=== PATIENT | male | born 1965 | race African-American/Black ===

== ENCOUNTER 2016-04-20 11:42 | Inpatient (IN) | payer OTHER ==
[2016-04-20 12:46] VITALS: BMI 24.8
--- NOTE | 2016-04-20 15:26 | HP ---
CIWA Score - CIWA Score Nausea/Vomitin Muscle Tremors: 2 Anxiety: 3 Paroxysmal Sweats: 3 Orientation: 0-Oriented Tacttile Disturbances: 2-Mild Itch/Numbness/Burn Auditory Disturbances: 0-None Visual Disturbances: 0-None Headache: 0-None Present Admission ROS BHS - HPI Chief Complaint: I need help to stop using alcohol. Allergies/Adverse Reactions: Allergies Allergy/AdvReac Type Severity Reaction Status Date / Time pork derived (porcine) Allergy Severe Rash Verified 04/20/16 13:36 History of Present Illness: 50 y/o m pt on mmtp with h/o chronic alcoholism seeking detox . Exam Limitations: No Limitations - Ebola screening Have you traveled outside of the country in the last 21 days: No Have you had contact with anyone from an Ebola affected area: No Have you been sick,other than usual withdrawal symptoms: No - Review of Systems Constitutional: Loss of Appetite, Malaise, Changes in sleep, Unexplained wgt Loss (20 lbs x 2 months) EENT: reports: Dental Problems Respiratory: reports: Shortness of Breath (h/o asthma) Cardiac: reports: No Symptoms Reported GI: reports: Nausea, Poor Appetite, Abdominal cramping : reports: No Symptoms Reported Musculoskeletal: reports: Muscle Pain Neuro: reports: No Symptoms reported Endocrine: reports: No Symptoms Reported Hematology: reports: No Symptoms Reported Psychiatric: reports: Depressed Other Systems: Reviewed and Negative Patient History - Patient Medical History Hx Anemia: No Hx Asthma: No Hx Chronic Obstructive Pulmonary Disease (COPD): No Hx Cancer: No Hx Cardiac Disorders: No Hx Congestive Heart Failure: No Hx Hypertension: Yes Hx Hypercholesterolemia: No Hx Pacemaker: No HX Cerebrovascular Accident: No Hx Seizures: No Hx Dementia: No Hx Diabetes: No Hx Gastrointestinal Disorders: No Hx Liver Disease: No Hx Genitourinary Disorders: No Hx Sexually Transmitted Disorders: No Hx Renal Disease (ESRD): No Hx Thyroid Disease: No Hx Human Immunodeficiency Virus (HIV): No Hx Hepatitis C: No Hx Depression: Yes (DOES NOT WANT PSYCH CONSULT) Hx Suicide Attempt: No (DENIES) Hx Bipolar Disorder: No Hx Schizophrenia: No - Patient Surgical History Past Surgical History: No Hx Neurologic Surgery: No Hx Cataract Extraction: No Hx Cardiac Surgery: No Hx Lung Surgery: No Hx Breast Surgery: No Hx Breast Biopsy: No Hx Abdominal Surgery: No Hx Appendectomy: No Hx Cholecystectomy: No Hx Genitourinary Surgery: No Hx Section: No Hx Orthopedic Surgery: No Anesthesia Reaction: No - PPD History Previous Implant?: Yes Documented Results: Positive w/o proof Date: 06/05/15 Results: CX-RAY NEGATIVE PPD to be Administered?: No - Reproductive History Patient is a Female of Child Bearing Age (11 -55 yrs old): No - Smoking Cessation Smoking history: Current every day smoker Have you smoked in the past 12 months: Yes Aproximately how many cigarettes per day: 10 Cigars Per Day: 0 Hx Chewing Tobacco Use: No Initiated information on smoking cessation: Yes 'Breaking Loose' booklet given: 04/20/16 - Substance & Tx. History Hx Alcohol Use: Yes Hx Substance Use: Yes Substance Use Type: Alcohol, Cocaine Hx Substance Use Treatment: Yes - Substances Abused Alcohol Route: Oral Frequency: No use in 30 days Amount used: 1/2 pt - 1 pt /d Age of first use: 12 Date of Last Use: 04/20/16 Cocaine Frequency: 3-6 times per week Amount used: 1-2 gms /wk Age of first use: 20 Date of Last Use: 04/20/16 Family Disease History - Family Disease History Family Disease History: Other: Father (DEPENDENT ON ETOH AND DRUGS), Brother ( DEPENDENT ON ETOH AND DRUGS) Admission Physical Exam BHS - Vital Signs Vital Signs: Vital Signs - 24 hr 04/20/16 12:44 Temperature 96.4 F L Pulse Rate 69 Respiratory 20 Rate Blood Pressure 140/103 50y/o m pt aox3 , ambulating in nad cooperative with exam. - Physical General Appearance: Yes: Appropriately Dressed, Irritable, Sweating, Anxious HEENTM: Yes: EOMI, Hearing grossly Normal, Normocephalic, Normal Voice, MAHENDRA Respiratory: Yes: Within Normal Limits, Lungs Clear, Normal Breath Sounds Neck: Yes: Supple, Trachea in good position Breast: Yes: Within Normal Limits Cardiology: Yes: Regular Rhythm, Regular Rate, S1, S2 Abdominal: Yes: Non Tender, Flat, Soft, Increased Bowel Sounds Back: Yes: Decreased Range of Motion Musculoskeletal: Yes: Back pain, Muscle Pain Extremities: Yes: Tremors Neurological: Yes: medical customer service representative II-XII NML intact, Fully Oriented, Alert, Motor Strength 5/5, Normal Response Integumentary: Yes: Dry, Moist Lymphatic: Yes: Within Normal Limits - Diagnostic (1) Alcohol dependence with uncomplicated withdrawal Current Visit: No Status: Acute (2) Cocaine dependence, uncomplicated Current Visit: No Status: Acute (3) Nicotine dependence Current Visit: Yes Status: Chronic Qualifiers: Nicotine product type: cigarettes Substance use status: uncomplicated Qualified Code(s): F17.210 - Nicotine dependence, cigarettes, uncomplicated (4) Asthma Current Visit: Yes Status: Chronic Qualifiers: Asthma severity: mild persistent (5) HTN (hypertension) Current Visit: Yes Status: Acute Qualifiers: Hypertension type: essential hypertension Qualified Code(s): I10 - Essential (primary) hypertension Cleared for Admission S - Detox or Rehab S Level of Care: Medically Managed Detox Regimen/Protocol: Librium S Breath Alcohol Content Breath Alcohol Content: 0.014 Urine Drug Screen - Results Drug Screen Negative: No Urine Drug Screen Results: RAMON-Cocaine, OPI-Opiates, MTD-Methadone
[2016-04-20] MEDS ORDERED: P-EPHED 60MG/TRIPROLIDI 2.5MG TABLET PO PRN (15:37)
[2016-04-20] MEDS ORDERED: MAG HYDROX/AL HYDROX/SIMETH 30 ML UNIT-DOSE CUP PO PRN (15:37)
[2016-04-20] MEDS ORDERED: diphenhydrAMINE HCL 50 MG CAPSULE PO PRN (15:37)
[2016-04-20] MEDS ORDERED: MENTHOL/PHENOL 1 EACH UD MM PRN (15:37)
[2016-04-20] MEDS ORDERED: ACETAMINOPHEN 325 MG TABLET (FP) PO PRN (15:37)
[2016-04-20] MEDS ORDERED: MAGNESIUM HYDROX 2400MG/30ML ORAL SUSPENSION 30 ML CUP PO PRN (15:37)
[2016-04-20] MEDS ORDERED: hydrOXYzine PAMOATE 25 MG CAPSULE (FP) PO PRN (15:37)
[2016-04-20] MEDS ORDERED: IBUPROFEN 400 MG TABLET (FP) PO PRN (15:37)
[2016-04-20] MEDS ORDERED: guaiFENesin/D-METHORPHAN HB 10 ML UNIT-DOSE CUPS PO PRN (15:37)
[2016-04-20] MEDS ORDERED: MAGNESIUM CITRATE 300 ML BOTTLE PO PRN (15:37)
[2016-04-20] MEDS ORDERED: chlordiazePOXIDE HCL 25 MG CAPSULE PO PRN (15:37)
[2016-04-20] MEDS ORDERED: LOPERAMIDE HCL 2 MG CAPSULE PO PRN (15:37)
[2016-04-20] MEDS ORDERED: ALBUTEROL SO4 6.7 GM HFA INHALER IH PRN (15:38)
[2016-04-20] MEDS: chlordiazePOXIDE HCL 25 MG CAPSULE PO SCH ×2 (18:16→22:39)
[2016-04-20] MEDS: THIAMINE HCL 100 MG TABLET (FP) PO SCH (22:39)
--- NOTE | 2016-04-20 22:50 | PN ---
S Progress Note Note: RECEIVED NURSE CALL PATIENT IS ALLERGIC TO BENADRYL AND VISTARIL DISCONTINUE ALLERGENS CONTINUE DETOX
[2016-04-20 23:18] LABS: URINE APPEARANCE CLEAR; URINE BILIRUBIN NEGATIVE (NEGATIVE); URINE BLOOD NEGATIVE (NEGATIVE); URINE COLOR YELLOW; URINE GLUCOSE (UA) NEGATIVE (NEGATIVE); URINE KETONE NEGATIVE (NEGATIVE); URINE LEUK ESTERASE NEGATIVE (NEGATIVE); URINE NITRITE NEGATIVE (NEGATIVE); URINE PROTEIN NEGATIVE (NEGATIVE); URINE UROBILINOGEN NEGATIVE E.U./dl (0.2-1.0)
[2016-04-21] MEDS: chlordiazePOXIDE HCL 25 MG CAPSULE PO SCH ×4 (05:37→22:03)
[2016-04-21] MEDS: METHADONE HCL 40 MG DISPERSABLE TABLET PO SCH (07:49)
[2016-04-21] MEDS: NICOTINE 21 MG/24 HOURS TOPICAL PATCH TD SCH (10:09)
[2016-04-21] MEDS: PRENATAL VITAMINS W/ FOLIC ACID TABLET (FP) PO SCH (10:09)
[2016-04-21] MEDS: NICOTINE POLACRILEX 4 MG GUM BC PRN (10:10)
[2016-04-21 10:14] LABS: MCH 31.9 pg (25.7-33.7); MCHC 33.9 g/dl (32.0-35.9); MEAN PLT VOLUME 9.1 fl (7.5-11.1); PLATELET COUNT 182 K/MM3 (134-434); RDW 13.5 % (11.9-15.9); WHITE BLOOD COUNT 4.7 K/mm3 (4.0-10.0)
--- NOTE | 2016-04-21 11:05 | PN ---
S CIWA - CIWA Score Nausea/Vomitin Muscle Tremors: 4-Moderate,w/Arms Extend Anxiety: 4-Mod. Anxious/Guarded Agitation: 4-Moderately Restless Paroxysmal Sweats: 3 Orientation: 0-Oriented Tacttile Disturbances: 1-Very Mild Itch/Numbness Auditory Disturbances: 0-None Visual Disturbances: 0-None Headache: 1-Very Mild CIWA-Ar Total Score: 20 BHS Progress Note (SOAP) Subjective: nausea, sweats, interrupted sleep, anxiety, tremor Objective: 04/21/16 11:04 Vital Signs - 8 hr 04/21/16 04/21/16 04/21/16 03:38 06:28 09:31 Temperature 96.3 F L 96.4 F L Pulse Rate 64 59 L Respiratory 18 15 18 Rate Blood Pressure 117/87 122/83 Laboratory Tests 04/20/16 04/21/16 04/21/16 23:00 05:50 05:50 WBC 4.7 RBC 4.59 Hgb 14.6 Hct 43.2 MCV 94.0 MCHC 33.9 RDW 13.5 Plt Count 182 MPV 9.1 Sodium 141 Potassium 4.0 Chloride 105 Urine Color Yellow Urine Appearance Clear Urine pH 6.0 Ur Specific [place] 1.020 Urine Protein Negative Urine Glucose (UA) Negative Urine Ketones Negative Urine Blood Negative Urine Nitrite Negative Urine Bilirubin Negative Urine Urobilinogen Negative Ur Leukocyte Esterase Negative labs still pending Assessment: 04/21/16 11:05 withdrawal sx Plan: cont detox, fluids, ambulation
[2016-04-21 11:11] LABS: ALBUMIN 3.9 g/dl (3.4-5.0); ALK PHOS 51 U/L (45-117); ANION GAP 7 (8-16); BILIRUBIN,TOTAL 0.5 mg/dL (0.2-1.0); CALCIUM 8.9 mg/dL (8.5-10.1); CO2 29 mmol/L (21-32); GLUCOSE,RANDOM 74 mg/dL (74-106); SGOT/AST 10 U/L (15-37); SGPT/ALT 21 U/L (12-78); TOT PROT 7.2 g/dl (6.4-8.2)
--- NOTE | 2016-04-21 12:53 | EKG ---
Test Reason : Blood Pressure : / mmHG Vent. Rate : 054 BPM Atrial Rate : 054 BPM P-R Int : 166 ms QRS Dur : 090 ms QT Int : 458 ms P-R-T Axes : 049 015 012 degrees QTc Int : 434 ms SINUS BRADYCARDIA OTHERWISE NORMAL ECG NO PREVIOUS ECGS AVAILABLE Confirmed by BILLY HERRON MD ([id number]) on 04/21/2016 12:53:24 PM Referred By: Confirmed By:BILLY HERRON MD
[2016-04-21] MEDS ORDERED: COLLOIDAL OATMEAL 1 BAR EACH TP PRN (17:46)
--- NOTE | 2016-04-21 17:48 | PN ---
S Progress Note Note: requests special soap
[2016-04-21] MEDS: THIAMINE HCL 100 MG TABLET (FP) PO SCH (22:03)
[2016-04-22] MEDS: METHADONE HCL 40 MG DISPERSABLE TABLET PO SCH (05:53)
[2016-04-22] MEDS: chlordiazePOXIDE HCL 25 MG CAPSULE PO SCH ×2 (05:53→10:08)
--- NOTE | 2016-04-22 08:59 | PN ---
S CIWA - CIWA Score Nausea/Vomitin Muscle Tremors: 4-Moderate,w/Arms Extend Anxiety: 4-Mod. Anxious/Guarded Agitation: 4-Moderately Restless Paroxysmal Sweats: 3 Orientation: 0-Oriented Tacttile Disturbances: 0-None Auditory Disturbances: 0-None Visual Disturbances: 0-None Headache: 0-None Present CIWA-Ar Total Score: 18 BHS Progress Note (SOAP) Subjective: nausea, sweats, interrupted sleep, anxiety, tremors, dry skin requesting A and D ointment Objective: 04/22/16 08:57 Vital Signs - 8 hr 04/22/16 04/22/16 03:30 06:34 Temperature 97.9 F Pulse Rate 52 L Respiratory 18 18 Rate Blood Pressure 143/92 Laboratory Tests 04/20/16 04/21/16 04/21/16 23:00 05:50 05:50 WBC 4.7 RBC 4.59 Hgb 14.6 Hct 43.2 MCV 94.0 MCHC 33.9 RDW 13.5 Plt Count 182 MPV 9.1 Sodium 141 Potassium 4.0 Chloride 105 Carbon Dioxide 29 Anion Gap 7 L BUN 12 D Creatinine 1.0 Creat Clearance w eGFR > 60 Random Glucose 74 Calcium 8.9 Total Bilirubin 0.5 D AST 10 L D ALT 21 D Alkaline Phosphatase 51 D Total Protein 7.2 Albumin 3.9 Urine Color Yellow Urine Appearance Clear Urine pH 6.0 Ur Specific [place] 1.020 Urine Protein Negative Urine Glucose (UA) Negative Urine Ketones Negative Urine Blood Negative Urine Nitrite Negative Urine Bilirubin Negative Urine Urobilinogen Negative Ur Leukocyte Esterase Negative RPR Titer 04/21/16 05:50 WBC RBC Hgb Hct MCV MCHC RDW Plt Count MPV Sodium Potassium Chloride Carbon Dioxide Anion Gap BUN Creatinine Creat Clearance w eGFR Random Glucose Calcium Total Bilirubin AST ALT Alkaline Phosphatase Total Protein Albumin Urine Color Urine Appearance Urine pH Ur Specific [place] Urine Protein Urine Glucose (UA) Urine Ketones Urine Blood Urine Nitrite Urine Bilirubin Urine Urobilinogen Ur Leukocyte Esterase RPR Titer Nonreactive Assessment: 04/22/16 08:58 withdrawal sx, dry skin Plan: cont detox, a and d ointment prescribed
[2016-04-22] MEDS: NICOTINE POLACRILEX 4 MG GUM BC PRN ×2 (09:43→16:54)
[2016-04-22] MEDS: PRENATAL VITAMINS W/ FOLIC ACID TABLET (FP) PO SCH (10:08)
[2016-04-22] MEDS: NICOTINE 21 MG/24 HOURS TOPICAL PATCH TD SCH (10:09)
[2016-04-22] MEDS: PETROLATUM, WHITE 30 GM TUBE TP SCH (10:09)
[2016-04-22] MEDS: VITAMINS A AND D TOPICAL OINTMENT 60 GM TUBE TP SCH ×2 (11:28→17:17)
[2016-04-22] MEDS: chlordiazePOXIDE 5 MG CAPSULE PO SCH ×2 (17:17→22:10)
[2016-04-22] MEDS: THIAMINE HCL 100 MG TABLET (FP) PO SCH (22:08)
--- NOTE | 2016-04-22 22:22 | PN ---
BHS Progress Note Note: received nurse call requests something for sleep recommend relaxation technique continue detox
[2016-04-22] MEDS ORDERED: ZOLPIDEM TARTRATE 5 MG TABLET PO STA (23:30)
--- NOTE | 2016-04-22 23:39 | PN ---
[facility] Progress Note Note: Psychiatry Attending-business unit controller's note : Asked to address this patient's complaint for insomnia. Progress notes reviewed.Medications revisited. Spoke to Mr Ortiz via telephone.Complaint confirmed. Patient cannot take benadryl (allergy) or trazodone (nightmares as per self- report). Seroquel offered.Rejected by patient.He agrees to take zolpidem 5 mg po NOW. Side effects/benefits discussed with the patient.Order is entered.Nurse made aware.
[2016-04-23] MEDS: VITAMINS A AND D TOPICAL OINTMENT 60 GM TUBE TP SCH ×3 (02:41→12:17)
[2016-04-23] MEDS: METHADONE HCL 40 MG DISPERSABLE TABLET PO SCH (05:42)
[2016-04-23] MEDS: chlordiazePOXIDE 5 MG CAPSULE PO SCH ×2 (05:42→10:17)
[2016-04-23] MEDS: PRENATAL VITAMINS W/ FOLIC ACID TABLET (FP) PO SCH (10:17)
[2016-04-23] MEDS: NICOTINE 21 MG/24 HOURS TOPICAL PATCH TD SCH (10:17)
[2016-04-23] MEDS: PETROLATUM, WHITE 30 GM TUBE TP SCH (10:17)
--- NOTE | 2016-04-23 11:29 | PN ---
BHS Progress Note (SOAP) Subjective: nausea, sweats, interrupted sleep, anxiety, tremor Objective: 04/23/16 11:28 Vital Signs - 8 hr 04/23/16 04/23/16 04/23/16 03:43 06:30 09:53 Temperature 96.6 F L 96.7 F L Pulse Rate 62 76 Respiratory 18 18 20 Rate Blood Pressure 134/96 142/100 Laboratory Tests 04/20/16 04/21/16 04/21/16 23:00 05:50 05:50 WBC 4.7 RBC 4.59 Hgb 14.6 Hct 43.2 MCV 94.0 MCHC 33.9 RDW 13.5 Plt Count 182 MPV 9.1 Sodium 141 Potassium 4.0 Chloride 105 Carbon Dioxide 29 Anion Gap 7 L BUN 12 D Creatinine 1.0 Creat Clearance w eGFR > 60 Random Glucose 74 Calcium 8.9 Total Bilirubin 0.5 D AST 10 L D ALT 21 D Alkaline Phosphatase 51 D Total Protein 7.2 Albumin 3.9 Urine Color Yellow Urine Appearance Clear Urine pH 6.0 Ur Specific [place] 1.020 Urine Protein Negative Urine Glucose (UA) Negative Urine Ketones Negative Urine Blood Negative Urine Nitrite Negative Urine Bilirubin Negative Urine Urobilinogen Negative Ur Leukocyte Esterase Negative RPR Titer 04/21/16 05:50 WBC RBC Hgb Hct MCV MCHC RDW Plt Count MPV Sodium Potassium Chloride Carbon Dioxide Anion Gap BUN Creatinine Creat Clearance w eGFR Random Glucose Calcium Total Bilirubin AST ALT Alkaline Phosphatase Total Protein Albumin Urine Color Urine Appearance Urine pH Ur Specific [place] Urine Protein Urine Glucose (UA) Urine Ketones Urine Blood Urine Nitrite Urine Bilirubin Urine Urobilinogen Ur Leukocyte Esterase RPR Titer Nonreactive Assessment: 04/23/16 11:28 withdrawal sx Plan: cont detox
[2016-04-23] MEDS ORDERED: amLODIPine BESYLATE 5 MG TABLET (FP) PO SCH (11:30)
[2016-04-23 13:28] VITALS: BP 126/86; PULSE 72; TEMP 96.4
[2016-04-23] MEDS: NICOTINE POLACRILEX 4 MG GUM BC PRN (14:03)
--- NOTE | 2016-04-23 14:37 | PN ---
S Progress Note Note: Patient wishes to leve a day before completing discharge, denies h/o seizures, DTs in past, BP now controlled with restarting antihypertensive medications. no complaints at this time will give regualr discharge.
--- NOTE | 2016-04-23 14:40 | DS ---
[facility] Detox Discharge Summary Admission Date: 04/20/16 Discharge Date: 04/23/16 - History Present History: Alcohol Dependence Pertinent Past History: asthma, nicotien dependence, HTN - Physical Exam Results Vital Signs: Vital Signs Temperature 96.4 F L 04/23/16 13:27 Pulse Rate 72 04/23/16 13:27 Respiratory Rate 20 04/23/16 13:27 Blood Pressure 126/86 04/23/16 13:27 O2 Sat by Pulse Oximetry (%) Pertinent Admission Physical Exam Findings: withdrawal sx - Treatment Hospital Course: Detox Protocol Followed, Detoxed Safely, Responded well, Discharged Condition Good, Rehab Referral Accepted Patient has Accepted a Rehab Referral to: Yes - Medication Discharge Medications: Ambulatory Orders Albuterol Sulfate Inhaler - [Ventolin HFA Inhaler -] 2 puff IH Q4H PRN #0 inhaler 11/01/15 Fluticasone Prop 0.05% Nasal [Flonase -] 1 spray NS BID spray 11/01/15 Sodium Chloride Nasal [place] [[place] Nasal [place] -] 2 spray NS BID PRN #0 bottle 11/01/15 Amlodipine Besylate [Norvasc -] 5 mg PO DAILY 04/20/16 - Diagnosis (1) HTN (hypertension) Current Visit: Yes Status: Chronic Qualifiers: Hypertension type: essential hypertension Qualified Code(s): I10 - Essential (primary) hypertension (2) Asthma Current Visit: Yes Status: Chronic Qualifiers: Asthma severity: mild persistent (3) Nicotine dependence Current Visit: Yes Status: Chronic Qualifiers: Nicotine product type: cigarettes Substance use status: in withdrawal Qualified Code(s): F17.213 - Nicotine dependence, cigarettes, with withdrawal (4) Alcohol dependence with uncomplicated withdrawal Current Visit: Yes Status: Chronic (5) Cocaine dependence, uncomplicated Current Visit: Yes Status: Chronic (6) Drug-induced mood disorder Current Visit: Yes Status: Acute - AMA Did Patient Leave Against Medical Advice: No
--- NOTE | 2016-04-23 14:49 | CONSULT ---
[facility] Psychiatric Consult - Data Date of interview: 04/23/16 Admission source: [facility] Identifying data: This is 50 years old male with no psychiatric hospitalization history intoxicated with : Opioids, Cocaine, Alcohol and Nicotine Substance Abuse History: Smoking Cessation. Smoking history: Current every day smoker. Have you smoked in the past 12 months: Yes. Aproximately how many cigarettes per day: 10. Cigars Per Day: 0. Hx Chewing Tobacco Use: No. Initiated information on smoking cessation: Yes. 'Breaking Loose' booklet given : 04/20/16. - Substance & Tx. History. Hx Alcohol Use: Yes. Hx Substance Use : Yes. Substance Use Type: Alcohol, Cocaine. Hx Substance Use Treatment: Yes. - Substances Abused. Alcohol. Route: Oral. Frequency: No use in 30 days. Amount used: 1/2 pt - 1 pt /d. Age of first use: 12. Date of Last Use : 04/20/16. Cocaine. Frequency: 3-6 times per week. Amount used: 1-2 gms / wk. Age of first use: 20. Date of Last Use: 04/20/16 Medical History: HTN, Asthma Psychiatric History: Denies Physical/Sexual Abuse/Trauma History: Denies Additional Comment: Observation Mental Status Exam - Mental Status Exam Alert and Oriented to: Person Cognitive Function: Fair Patient Appearance: Unkempt Mood: Sad Affect: Flat Patient Behavior: Sedated Speech Pattern: Delayed Voice Loudness: Mildly Soft/Quiet Thought Process: Circumstantial Thought Disorder: Being Controlled Hallucinations: Denies Suicidal Ideation: Denies Homicidal Ideation: Denies Insight/Judgement: Fair Sleep: Difficulty falling asleep Appetite: Fair Muscle strength/Tone: Normal Gait/Station: Shuffling Additional Comments: Observation Psychiatric Findings - Problem List ([place] 1, 2,3) (1) Drug-induced mood disorder Current Visit: Yes Status: Acute (2) Alcohol dependence with uncomplicated withdrawal Current Visit: Yes Status: Chronic (3) Cocaine dependence, uncomplicated Current Visit: Yes Status: Chronic (4) Nicotine dependence Current Visit: Yes Status: Chronic Qualifiers: Nicotine product type: cigarettes Substance use status: in withdrawal Qualified Code(s): F17.213 - Nicotine dependence, cigarettes, with withdrawal - Initial Treatment Plan Initial Treatment Plan: Observation
[2016-04-23] MEDS ORDERED: chlordiazePOXIDE HCL 10 MG CAPSULE PO SCH (17:00)
== END 2016-04-23 15:18 | disposition home or self-care (01) | DRG 774 ==
LOC: YASAS 11:42 → Y3N 16:36
PROVIDERS: ADMIT Internal Medicine; ATTEND Internal Medicine
PROC: HZ2ZZZZ Detoxification Services for Substance Abuse Treatment (ICD-10-PCS; principal; 2016-04-20)
DX: F10.230 Alcohol dependence with withdrawal, uncomplicated (principal); F14.20 Cocaine dependence, uncomplicated; F17.210 Nicotine dependence, cigarettes, uncomplicated; F19.24 Other psychoactive substance dependence with psychoactive substance-induced mood disorder; I10 Essential (primary) hypertension; J45.909 Unspecified asthma, uncomplicated; L98.8 Other specified disorders of the skin and subcutaneous tissue
CPT/HCPCS: 36415; 80053; 81003; 85027; 86593; 93005; 93010

== ENCOUNTER 2016-07-09 11:03 | Inpatient (IN) | payer OTHER ==
[2016-07-09 14:17] VITALS: BMI 25.4
--- NOTE | 2016-07-09 14:49 | HP ---
CIWA Score - CIWA Score Nausea/Vomitin Muscle Tremors: 3 Anxiety: 3 Agitation: 3 Paroxysmal Sweats: 2 Orientation: 0-Oriented Tacttile Disturbances: 2-Mild Itch/Numbness/Burn Auditory Disturbances: 2-Mild Harshness/Frighten Visual Disturbances: 2-Mild Sensitivity Headache: 2-Mild CIWA-Ar Total Score: 22 Admission ROS BHS - HPI Chief Complaint: i need help to stop drinking alcohol Allergies/Adverse Reactions: Allergies Allergy/AdvReac Type Severity Reaction Status Date / Time pork derived (porcine) Allergy Severe Rash Verified 07/09/16 14:39 diphenhydramine HCl Allergy Intermediate Swelling Verified 07/09/16 14:39 [From Benadryl] No Known Drug Allergies Allergy Verified 07/09/16 14:39 History of Present Illness: this 50 years old male with alcohol dependence,withdrawal symptom,last detox [facility] 04/20/16 to 04/23/16 mmtp 40 mgs/day,last medicated today htn asthma longest period of sobriety 9 months Exam Limitations: No Limitations - Ebola screening Have you traveled outside of the country in the last 21 days: No Have you had contact with anyone from an Ebola affected area: No Have you been sick,other than usual withdrawal symptoms: No - Review of Systems Constitutional: Loss of Appetite, Malaise, Night Sweats, Changes in sleep, Weakness EENT: reports: Nose Congestion Respiratory: reports: No Symptoms reported Cardiac: reports: No Symptoms Reported GI: reports: Diarrhea, Nausea, Vomiting, Abdominal cramping : reports: No Symptoms Reported Musculoskeletal: reports: Back Pain, Muscle Pain Integumentary: reports: Dryness Neuro: reports: Headache, Tremors Endocrine: reports: No Symptoms Reported Hematology: reports: No Symptoms Reported Psychiatric: reports: No Sypmtoms Reported, Judgement Intact, Mood/Affect Appropiate, Orientated x3 Patient History - Patient Medical History Hx Anemia: No Hx Asthma: Yes (on albuterol inhaler) Hx Chronic Obstructive Pulmonary Disease (COPD): No Hx Cancer: No Hx Cardiac Disorders: No Hx Congestive Heart Failure: No Hx Hypertension: Yes (non compliance) Hx Hypercholesterolemia: No Hx Pacemaker: No HX Cerebrovascular Accident: No Hx Seizures: No Hx Dementia: No Hx Diabetes: No Hx Gastrointestinal Disorders: No Hx Liver Disease: No Hx Genitourinary Disorders: No Hx Sexually Transmitted Disorders: No Hx Renal Disease (ESRD): No Hx Thyroid Disease: No Hx Human Immunodeficiency Virus (HIV): No (last 07/03/16 negative) Hx Hepatitis C: No Hx Depression: Yes (DOES NOT WANT PSYCH CONSULT) Hx Suicide Attempt: No (DENIES) Hx Bipolar Disorder: No Hx Schizophrenia: No Other Medical History: no suicidal,no homicidal,low back pain - Patient Surgical History Past Surgical History: No Hx Neurologic Surgery: No Hx Cataract Extraction: No Hx Cardiac Surgery: No Hx Lung Surgery: No Hx Breast Surgery: No Hx Breast Biopsy: No Hx Abdominal Surgery: No Hx Appendectomy: No Hx Cholecystectomy: No Hx Genitourinary Surgery: No Hx Section: No Hx Orthopedic Surgery: No Anesthesia Reaction: No - PPD History Previous Implant?: Yes Documented Results: Positive w/o proof Date: 06/05/15 Results: CX-RAY NEGATIVE - Smoking Cessation Smoking history: Current every day smoker Have you smoked in the past 12 months: Yes Aproximately how many cigarettes per day: 10 Cigars Per Day: 0 Hx Chewing Tobacco Use: No Initiated information on smoking cessation: Yes 'Breaking Loose' booklet given: 07/09/16 - Substance & Tx. History Hx Alcohol Use: Yes Hx Substance Use: Yes Substance Use Type: Alcohol, Cocaine Hx Substance Use Treatment: Yes ([facility] 04/20/16 to 04/23/16) Family Disease History - Family Disease History Family Disease History: Other: Father (DEPENDENT ON ETOH AND DRUGS), Brother ( DEPENDENT ON ETOH AND DRUGS) Admission Physical Exam BHS - Vital Signs Vital Signs: Vital Signs - 24 hr 07/09/16 14:13 Temperature 97 F L Pulse Rate 74 Respiratory 20 Rate Blood Pressure 134/100 - Physical General Appearance: Yes: Moderate Distress, Tremorous, Irritable, Sweating, Anxious HEENTM: Yes: Hearing grossly Normal, Normal ENT Inspection, MAHENDRA, Pharynx Normal Respiratory: Yes: Lungs Clear, Normal Breath Sounds, No Respiratory Distress Neck: Yes: Within Normal Limits, Supple, Trachea in good position Breast: Yes: Within Normal Limits Cardiology: Yes: Within Normal Limits, Regular Rhythm, Regular Rate, S1, S2 Abdominal: Yes: Within Normal Limits, Normal Bowel Sounds, Non Tender, Flat, Soft Genitourinary: Yes: Within Normal Limits Back: Yes: Within Normal Limits, Normal Inspection, Muscle Spasm Musculoskeletal: Yes: full range of Motion, Back pain, Muscle Pain Extremities: Yes: Within Normal Limits, Normal Range of Motion, Tremors Neurological: Yes: president & founder II-XII NML intact, Fully Oriented, Alert, Motor Strength 5/5 Integumentary: Yes: Dry Lymphatic: Yes: Within Normal Limits - Diagnostic (1) Alcohol dependence with uncomplicated withdrawal Current Visit: No Status: Chronic (2) Asthma Current Visit: No Status: Chronic Qualifiers: Asthma severity: mild persistent (3) Cocaine dependence, uncomplicated Current Visit: No Status: Chronic (4) HTN (hypertension) Current Visit: No Status: Chronic Qualifiers: Hypertension type: essential hypertension Qualified Code(s): I10 - Essential (primary) hypertension (5) Nicotine dependence Current Visit: No Status: Chronic Qualifiers: Nicotine product type: cigarettes Substance use status: in withdrawal Qualified Code(s): F17.213 - Nicotine dependence, cigarettes, with withdrawal (6) Syncope Current Visit: Yes Status: Acute (7) Weight loss Current Visit: Yes Status: Acute (8) Positive PPD Current Visit: Yes Status: Acute Cleared for Admission [facility] - Detox or Rehab [facility] Level of Care: Medically Managed Detox Regimen/Protocol: Librium [facility] Breath Alcohol Content Breath Alcohol Content: 0 Urine Drug Screen - Results Drug Screen Negative: No Urine Drug Screen Results: RAMON-Cocaine, OPI-Opiates, MTD-Methadone
[2016-07-09] MEDS ORDERED: MENTHOL/PHENOL 1 EACH UD MM PRN (15:03)
[2016-07-09] MEDS ORDERED: ACETAMINOPHEN 325 MG TABLET (FP) PO PRN (15:03)
[2016-07-09] MEDS ORDERED: LOPERAMIDE HCL 2 MG CAPSULE PO PRN (15:03)
[2016-07-09] MEDS ORDERED: MAGNESIUM HYDROX 2400MG/30ML ORAL SUSPENSION 30 ML CUP PO PRN (15:03)
[2016-07-09] MEDS ORDERED: guaiFENesin/D-METHORPHAN HB 10 ML UNIT-DOSE CUPS PO PRN (15:03)
[2016-07-09] MEDS ORDERED: chlordiazePOXIDE HCL 25 MG CAPSULE PO PRN (15:03)
[2016-07-09] MEDS ORDERED: IBUPROFEN 400 MG TABLET (FP) PO PRN (15:03)
[2016-07-09] MEDS ORDERED: MAGNESIUM CITRATE 300 ML BOTTLE PO PRN (15:03)
[2016-07-09] MEDS ORDERED: diphenhydrAMINE HCL 50 MG CAPSULE PO PRN (15:03)
[2016-07-09] MEDS ORDERED: MAG HYDROX/AL HYDROX/SIMETH 30 ML UNIT-DOSE CUP PO PRN (15:03)
[2016-07-09] MEDS ORDERED: ALBUTEROL SO4 6.7 GM HFA INHALER IH PRN (15:09)
[2016-07-09] MEDS ORDERED: chlordiazePOXIDE HCL 25 MG CAPSULE PO ONE (15:15)
[2016-07-09] MEDS: amLODIPine BESYLATE 5 MG TABLET (FP) PO SCH (15:49)
[2016-07-09 17:38] LABS: URINE APPEARANCE CLEAR; URINE BILIRUBIN NEGATIVE (NEGATIVE); URINE BLOOD NEGATIVE (NEGATIVE); URINE COLOR YELLOW; URINE GLUCOSE (UA) NEGATIVE (NEGATIVE); URINE KETONE 2+ (NEGATIVE); URINE NITRITE NEGATIVE (NEGATIVE); URINE UROBILINOGEN NEGATIVE E.U./dl (0.2-1.0)
[2016-07-09] MEDS: chlordiazePOXIDE HCL 25 MG CAPSULE PO SCH ×2 (17:46→22:17)
[2016-07-09 17:56] LABS: URINE LEUK ESTERASE TRACE (NEGATIVE); URINE PROTEIN 1+ (NEGATIVE)
[2016-07-09 18:22] LABS: URINE BACTERIA RARE /hpf (NONE SEEN); URINE HYALINE CAST 21 /lpf; URINE MUCUS MANY; URINE RBC 1 /hpf (0-3); URINE WBC 5 /hpf (3-5)
[2016-07-09] MEDS: THIAMINE HCL 100 MG TABLET (FP) PO SCH (22:17)
[2016-07-10] MEDS: chlordiazePOXIDE HCL 25 MG CAPSULE PO SCH ×4 (05:54→22:20)
[2016-07-10 09:19] LABS: HIV 1 & 2 AB NEGATIVE; HIV 1 AGp24 NEGATIVE
[2016-07-10] MEDS ORDERED: METHADONE HCL 40 MG DISPERSABLE TABLET PO ONE (09:20)
--- NOTE | 2016-07-10 10:08 | EKG ---
Test Reason : Blood Pressure : / mmHG Vent. Rate : 061 BPM Atrial Rate : 061 BPM P-R Int : 158 ms QRS Dur : 086 ms QT Int : 450 ms P-R-T Axes : 049 007 -29 degrees QTc Int : 453 ms NORMAL SINUS RHYTHM NONSPECIFIC T WAVE ABNORMALITY ABNORMAL ECG WHEN COMPARED WITH ECG OF 20-APR-2016 17:48, INVERTED T WAVES HAVE REPLACED NONSPECIFIC T WAVE ABNORMALITY IN INFERIOR LEADS INVERTED T WAVES HAVE REPLACED NONSPECIFIC T WAVE ABNORMALITY IN ANTERIOR LEADS Confirmed by GERALDO FORTE MD ([id number]) on 07/10/2016 10:08:23 AM Referred By: Confirmed By:GERALDO FORTE MD
[2016-07-10 10:12] LABS: MCH 31.9 pg (25.7-33.7); MCHC 34.3 g/dl (32.0-35.9); MEAN PLT VOLUME 9.3 fl (7.5-11.1); PLATELET COUNT 183 K/MM3 (134-434); RDW 14.5 % (11.9-15.9)
[2016-07-10 10:13] LABS: ALBUMIN 4.3 g/dl (3.4-5.0)
[2016-07-10 10:14] LABS: BILIRUBIN,TOTAL 0.6 mg/dL (0.2-1.0); CALCIUM 9.4 mg/dL (8.5-10.1); COCKROFT - GAULT 72.88; CREATININE 1.4 mg/dL (0.7-1.3); TOT PROT 8.2 g/dl (6.4-8.2)
[2016-07-10] MEDS: PRENATAL VITAMINS W/ FOLIC ACID TABLET (FP) PO SCH (10:31)
[2016-07-10] MEDS: amLODIPine BESYLATE 5 MG TABLET (FP) PO SCH (10:31)
--- NOTE | 2016-07-10 10:46 | PN ---
[facility] CIWA - CIWA Score Nausea/Vomitin-No Nausea/No Vomiting Muscle Tremors: 4-Moderate,w/Arms Extend Anxiety: 4-Mod. Anxious/Guarded Agitation: 4-Moderately Restless Paroxysmal Sweats: 1-Minimal Palms Moist Orientation: 0-Oriented Tacttile Disturbances: 3-Moderate Itch/Numb/Burn Auditory Disturbances: 0-None Visual Disturbances: 0-None Headache: 0-None Present CIWA-Ar Total Score: 16 BHS Progress Note (SOAP) Subjective: ANXIETY,TREMORS,SWEATS,FATIGUE. Objective: 07/10/16 10:45 Vital Signs Temperature 97.6 F 07/10/16 09:57 Pulse Rate 79 07/10/16 09:57 Respiratory Rate 18 07/10/16 09:57 Blood Pressure 123/94 07/10/16 09:57 O2 Sat by Pulse Oximetry (%) Laboratory Last Values WBC 7.0 K/mm3 (4.0-10.0) D 07/10/16 06:00 RBC 4.82 M/mm3 (4.00-5.60) 07/10/16 06:00 Hgb 15.4 GM/dL (11.7-16.9) 07/10/16 06:00 Hct 44.8 % (35.4-49) 07/10/16 06:00 MCV 93.0 fl (80-96) 07/10/16 06:00 MCHC 34.3 g/dl (32.0-35.9) 07/10/16 06:00 RDW 14.5 % (11.9-15.9) 07/10/16 06:00 Plt Count 183 K/MM3 (134-434) 07/10/16 06:00 MPV 9.3 fl (7.5-11.1) 07/10/16 06:00 Sodium 137 mmol/L (136-145) 07/10/16 06:00 Potassium 4.4 mmol/L (3.5-5.1) 07/10/16 06:00 Chloride 99 mmol/L (98-107) 07/10/16 06:00 Carbon Dioxide 30 mmol/L (21-32) 07/10/16 06:00 Anion Gap 8 (8-16) 07/10/16 06:00 BUN 16 mg/dL (7-18) D 07/10/16 06:00 Creatinine 1.4 mg/dL (0.7-1.3) H D 07/10/16 06:00 Creat Clearance w eGFR 53.43 (>60) 07/10/16 06:00 Random Glucose 159 mg/dL (74-106) H D 07/10/16 06:00 Calcium 9.4 mg/dL (8.5-10.1) 07/10/16 06:00 Total Bilirubin 0.6 mg/dL (0.2-1.0) 07/10/16 06:00 AST 20 U/L (15-37) D 07/10/16 06:00 ALT 28 U/L (12-78) D 07/10/16 06:00 Alkaline Phosphatase 60 U/L (45-117) 07/10/16 06:00 Total Protein 8.2 g/dl (6.4-8.2) 07/10/16 06:00 Albumin 4.3 g/dl (3.4-5.0) 07/10/16 06:00 Urine Color Yellow 07/09/16 15:00 Urine Appearance Clear 07/09/16 15:00 Urine pH 5.0 (5.0-8.0) 07/09/16 15:00 Ur Specific [place] 1.029 (1.001-1.035) 07/09/16 15:00 Urine Protein 1+ (NEGATIVE) H 07/09/16 15:00 Urine Glucose (UA) Negative (NEGATIVE) 07/09/16 15:00 Urine Ketones 2+ (NEGATIVE) H 07/09/16 15:00 Urine Blood Negative (NEGATIVE) 07/09/16 15:00 Urine Nitrite Negative (NEGATIVE) 07/09/16 15:00 Urine Bilirubin Negative (NEGATIVE) 07/09/16 15:00 Urine Urobilinogen Negative E.U./dl (0.2-1.0) 07/09/16 15:00 Ur Leukocyte Esterase Trace (NEGATIVE) H 07/09/16 15:00 Urine RBC 1 /hpf (0-3) 07/09/16 15:00 Urine WBC 5 /hpf (3-5) 07/09/16 15:00 Ur Epithelial Cells Rare /hpf (FEW) 07/09/16 15:00 Urine Bacteria Rare /hpf (NONE SEEN) 07/09/16 15:00 Hyaline Casts 21 /lpf 07/09/16 15:00 Urine Mucus Many 07/09/16 15:00 HIV 1&2 Antibody Screen Negative 07/09/16 13:00 HIV P24 Antigen Negative 07/09/16 13:00 LABS NOTED Assessment: 07/10/16 10:45 WITHDRAWAL SX Plan: CONTINUE DETOX
[2016-07-10] MEDS: NICOTINE POLACRILEX 2 MG GUM BUC PRN ×3 (13:08→22:23)
[2016-07-10] MEDS ORDERED: COLLOIDAL OATMEAL 1 BAR EACH TP PRN (19:50)
[2016-07-10] MEDS: THIAMINE HCL 100 MG TABLET (FP) PO SCH (22:20)
[2016-07-10] MEDS: P-EPHED 60MG/TRIPROLIDI 2.5MG TABLET PO PRN (22:22)
[2016-07-11] MEDS: chlordiazePOXIDE HCL 25 MG CAPSULE PO SCH ×2 (05:38→10:30)
[2016-07-11] MEDS: METHADONE HCL 40 MG DISPERSABLE TABLET PO SCH (05:38)
[2016-07-11] MEDS: PRENATAL VITAMINS W/ FOLIC ACID TABLET (FP) PO SCH (10:30)
[2016-07-11] MEDS: amLODIPine BESYLATE 5 MG TABLET (FP) PO SCH (10:30)
[2016-07-11] MEDS: HYDROCORTISONE 0.5% TOPICAL OINTMENT TUBE TP SCH ×2 (12:34→22:56)
--- NOTE | 2016-07-11 15:15 | PN ---
[facility] CIWA - CIWA Score Nausea/Vomitin-No Nausea/No Vomiting Muscle Tremors: 4-Moderate,w/Arms Extend Anxiety: 4-Mod. Anxious/Guarded Agitation: 4-Moderately Restless Paroxysmal Sweats: 3 Orientation: 0-Oriented Tacttile Disturbances: 3-Moderate Itch/Numb/Burn Auditory Disturbances: 0-None Visual Disturbances: 0-None Headache: 0-None Present CIWA-Ar Total Score: 18 BHS Progress Note (SOAP) Subjective: Tremors, Sweating, Interrupted Sleep. Pt. reporting feeling of having a "mass" in Right Breast for several months. Pt. reports occasional discomfort at site. Objective: PT. A & O X 3, OBSERVED AMBULATING ON UNIT. 07/11/16 15:11 Vital Signs Temperature 96.5 F L 07/11/16 11:17 Pulse Rate 66 07/11/16 11:17 Respiratory Rate 19 07/11/16 11:17 Blood Pressure 113/82 07/11/16 11:17 O2 Sat by Pulse Oximetry (%) Laboratory Last Values WBC 7.0 K/mm3 (4.0-10.0) D 07/10/16 06:00 RBC 4.82 M/mm3 (4.00-5.60) 07/10/16 06:00 Hgb 15.4 GM/dL (11.7-16.9) 07/10/16 06:00 Hct 44.8 % (35.4-49) 07/10/16 06:00 MCV 93.0 fl (80-96) 07/10/16 06:00 MCHC 34.3 g/dl (32.0-35.9) 07/10/16 06:00 RDW 14.5 % (11.9-15.9) 07/10/16 06:00 Plt Count 183 K/MM3 (134-434) 07/10/16 06:00 MPV 9.3 fl (7.5-11.1) 07/10/16 06:00 Sodium 137 mmol/L (136-145) 07/10/16 06:00 Potassium 4.4 mmol/L (3.5-5.1) 07/10/16 06:00 Chloride 99 mmol/L (98-107) 07/10/16 06:00 Carbon Dioxide 30 mmol/L (21-32) 07/10/16 06:00 Anion Gap 8 (8-16) 07/10/16 06:00 BUN 16 mg/dL (7-18) D 07/10/16 06:00 Creatinine 1.4 mg/dL (0.7-1.3) H D 07/10/16 06:00 Creat Clearance w eGFR 53.43 (>60) 07/10/16 06:00 Random Glucose 159 mg/dL (74-106) H D 07/10/16 06:00 Calcium 9.4 mg/dL (8.5-10.1) 07/10/16 06:00 Total Bilirubin 0.6 mg/dL (0.2-1.0) 07/10/16 06:00 AST 20 U/L (15-37) D 07/10/16 06:00 ALT 28 U/L (12-78) D 07/10/16 06:00 Alkaline Phosphatase 60 U/L (45-117) 07/10/16 06:00 Total Protein 8.2 g/dl (6.4-8.2) 07/10/16 06:00 Albumin 4.3 g/dl (3.4-5.0) 07/10/16 06:00 Urine Color Yellow 07/09/16 15:00 Urine Appearance Clear 07/09/16 15:00 Urine pH 5.0 (5.0-8.0) 07/09/16 15:00 Ur Specific [place] 1.029 (1.001-1.035) 07/09/16 15:00 Urine Protein 1+ (NEGATIVE) H 07/09/16 15:00 Urine Glucose (UA) Negative (NEGATIVE) 07/09/16 15:00 Urine Ketones 2+ (NEGATIVE) H 07/09/16 15:00 Urine Blood Negative (NEGATIVE) 07/09/16 15:00 Urine Nitrite Negative (NEGATIVE) 07/09/16 15:00 Urine Bilirubin Negative (NEGATIVE) 07/09/16 15:00 Urine Urobilinogen Negative E.U./dl (0.2-1.0) 07/09/16 15:00 Ur Leukocyte Esterase Trace (NEGATIVE) H 07/09/16 15:00 Urine RBC 1 /hpf (0-3) 07/09/16 15:00 Urine WBC 5 /hpf (3-5) 07/09/16 15:00 Ur Epithelial Cells Rare /hpf (FEW) 07/09/16 15:00 Urine Bacteria Rare /hpf (NONE SEEN) 07/09/16 15:00 Hyaline Casts 21 /lpf 07/09/16 15:00 Urine Mucus Many 07/09/16 15:00 RPR Titer Nonreactive (NONREACTIVE) 07/10/16 06:00 HIV 1&2 Antibody Screen Negative 07/09/16 13:00 HIV P24 Antigen Negative 07/09/16 13:00 LABS NOTED. NO MASS OR TENDERNESS NOTED ON PALPATION OF RIGHT BREAST TISSUE. NO DISCOLORATION OR UNUSUAL DISCHARGE NOTED. 07/11/16 15:13 07/11/16 15:15 Assessment: 07/11/16 15:13 WITHDRAWAL SYMPTOMS. 07/11/16 15:14 Plan: CONTINUE DETOX. BGM ACBK X 1 TOMORROW FOR ELEVATED ADMISSION RANDOM GLUCOSE LEVEL. ADVISED PATIENT TO FOLLOW-UP WITH DISPLAY TRIMMER / REHAB MEDICAL PROVIDER AFTER DISCHARGE FROM DETOX FOR GENERAL MEDICAL ASSESSMENT AND FOR ABNORMAL ADMISSION LAB VALUES AND FOR ISSUE WITH RIGHT BREAST TISSUE.
[2016-07-11] MEDS ORDERED: CYCLOBENZAPRINE HCL 10 MG TABLET (FP) PO PRN (15:18)
[2016-07-11] MEDS: chlordiazePOXIDE 5 MG CAPSULE PO SCH ×2 (18:12→22:58)
[2016-07-11] MEDS: THIAMINE HCL 100 MG TABLET (FP) PO SCH (22:57)
[2016-07-12] MEDS: chlordiazePOXIDE 5 MG CAPSULE PO SCH ×2 (05:27→10:31)
[2016-07-12] MEDS: METHADONE HCL 40 MG DISPERSABLE TABLET PO SCH (05:28)
[2016-07-12] MEDS: NICOTINE POLACRILEX 2 MG GUM BUC PRN ×2 (07:09→14:11)
--- NOTE | 2016-07-12 10:30 | PN ---
BHS Progress Note (SOAP) Subjective: nausea, sweats, interrupted sleep, anxiety, tremors, r brest mas present for several months, tender on palpation Objective: 07/12/16 10:28 Vital Signs - 8 hr 07/12/16 07/12/16 07/12/16 03:30 06:10 10:23 Temperature 97.5 F L 97 F L Pulse Rate 69 73 Respiratory 18 18 19 Rate Blood Pressure 123/87 144/92 Laboratory Tests 07/09/16 07/09/16 07/10/16 13:00 15:00 06:00 WBC 7.0 D RBC 4.82 Hgb 15.4 Hct 44.8 MCV 93.0 MCHC 34.3 RDW 14.5 Plt Count 183 MPV 9.3 Sodium Potassium Chloride Carbon Dioxide Anion Gap BUN Creatinine Creat Clearance w eGFR POC Glucometer Random Glucose Calcium Total Bilirubin AST ALT Alkaline Phosphatase Total Protein Albumin Urine Color Yellow Urine Appearance Clear Urine pH 5.0 Ur Specific [place] 1.029 Urine Protein 1+ H Urine Glucose (UA) Negative Urine Ketones 2+ H Urine Blood Negative Urine Nitrite Negative Urine Bilirubin Negative Urine Urobilinogen Negative Ur Leukocyte Esterase Trace H Urine RBC 1 Urine WBC 5 Ur Epithelial Cells Rare Urine Bacteria Rare Hyaline Casts 21 Urine Mucus Many RPR Titer HIV 1&2 Antibody Screen Negative HIV P24 Antigen Negative 07/10/16 07/10/16 07/12/16 06:00 06:00 05:31 WBC RBC Hgb Hct MCV MCHC RDW Plt Count MPV Sodium 137 Potassium 4.4 Chloride 99 Carbon Dioxide 30 Anion Gap 8 BUN 16 D Creatinine 1.4 H D Creat Clearance w eGFR 53.43 POC Glucometer 92 Random Glucose 159 H D Calcium 9.4 Total Bilirubin 0.6 AST 20 D ALT 28 D Alkaline Phosphatase 60 Total Protein 8.2 Albumin 4.3 Urine Color Urine Appearance Urine pH Ur Specific [place] Urine Protein Urine Glucose (UA) Urine Ketones Urine Blood Urine Nitrite Urine Bilirubin Urine Urobilinogen Ur Leukocyte Esterase Urine RBC Urine WBC Ur Epithelial Cells Urine Bacteria Hyaline Casts Urine Mucus RPR Titer Nonreactive HIV 1&2 Antibody Screen HIV P24 Antigen elevated creatinine Assessment: 07/12/16 10:29 withdrawal sx, right breast mass r/o gynaecomastia, new onset Plan: cont detox, counseled re need to f/u PCP for work up of right breast mass, motrin prn for pain.
[2016-07-12] MEDS: amLODIPine BESYLATE 5 MG TABLET (FP) PO SCH (10:31)
[2016-07-12] MEDS: HYDROCORTISONE 0.5% TOPICAL OINTMENT TUBE TP SCH ×2 (10:31→22:31)
[2016-07-12] MEDS: PRENATAL VITAMINS W/ FOLIC ACID TABLET (FP) PO SCH (10:31)
[2016-07-12] MEDS: chlordiazePOXIDE HCL 10 MG CAPSULE PO SCH ×2 (17:33→22:31)
[2016-07-12] MEDS: P-EPHED 60MG/TRIPROLIDI 2.5MG TABLET PO PRN (17:35)
[2016-07-12 21:34] VITALS: TEMP 97.3
[2016-07-12] MEDS: THIAMINE HCL 100 MG TABLET (FP) PO SCH (22:30)
[2016-07-13] MEDS: chlordiazePOXIDE HCL 10 MG CAPSULE PO SCH (05:19)
[2016-07-13] MEDS: METHADONE HCL 40 MG DISPERSABLE TABLET PO SCH (05:19)
[2016-07-13 06:24] VITALS: BP 126/91; PULSE 72
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
== END 2016-07-13 08:25 | disposition home or self-care (01) | DRG 773 ==
LOC: YASAS 11:03 → Y3N 14:56
PROVIDERS: ADMIT Internal Medicine; ATTEND Internal Medicine
PROC: HZ2ZZZZ Detoxification Services for Substance Abuse Treatment (ICD-10-PCS; principal; 2016-07-09)
DX: F10.230 Alcohol dependence with withdrawal, uncomplicated (principal); F11.20 Opioid dependence, uncomplicated; F14.20 Cocaine dependence, uncomplicated; F17.213 Nicotine dependence, cigarettes, with withdrawal; F19.24 Other psychoactive substance dependence with psychoactive substance-induced mood disorder; R76.11 Nonspecific reaction to tuberculin skin test without active tuberculosis; J45.20 Mild intermittent asthma, uncomplicated; I10 Essential (primary) hypertension; N62 Hypertrophy of breast; R79.89 Other specified abnormal findings of blood chemistry; Z91.14 Patient's other noncompliance with medication regimen; Z86.79 Personal history of other diseases of the circulatory system; Z87.898 Personal history of other specified conditions
CPT/HCPCS: 36415; 71010-TC; 80053; 81003; 81015; 85027; 86593; 87389; 93005; 93010

== ENCOUNTER 2017-07-27 12:10 | Inpatient (IN) | payer OTHER ==
[2017-07-27 14:03] VITALS: BMI 23.7
--- NOTE | 2017-07-27 18:58 | HP ---
COWS - Scale Resting Pulse: 0= DC 80 or Below Sweatin= Chills/Flushing Restless Observation: 3= Extraneous Movement Pupil Size: 0= Normal to Room Light Bone or Joint Aches: 4=Acute Joint/Muscle Pain Runny Nose/ Eye Tearin= Runny Nose/Eyes GI Upset > 30mins: 1= Stomach Cramp Tremor Observation: 1= Tremor [place], Not Seen Yawning Observation: 0= None Anxiety or Irritability: 2=Irritable/Anxious Goose Flesh Skin: 0=Smooth Skin COWS Score: 14 CIWA Score - CIWA Score Nausea/Vomitin-Mild Nausea/No Vomiting Muscle Tremors: 4-Moderate,w/Arms Extend Anxiety: 4-Mod. Anxious/Guarded Agitation: 4-Moderately Restless Paroxysmal Sweats: 2 Orientation: 0-Oriented Tacttile Disturbances: 0-None Auditory Disturbances: 0-None Visual Disturbances: 0-None Headache: 0-None Present CIWA-Ar Total Score: 15 Admission ROS S - HPI Chief Complaint: WITHDRAWAL SX FROM HEROIN AND ALCOHOL Allergies/Adverse Reactions: Allergies Allergy/AdvReac Type Severity Reaction Status Date / Time pork derived (porcine) Allergy Severe Rash Verified 07/27/17 17:35 diphenhydramine HCl Allergy Intermediate Swelling Verified 07/27/17 17:35 [From Benadryl] No Known Drug Allergies Allergy Verified 07/27/17 17:35 History of Present Illness: 51 Y/O AA/MALE WITH A HX OF HEROIN AND ALCOHOL DEPENDENCE SEEKING DETOX [place]. Exam Limitations: No Limitations - Ebola screening Have you traveled outside of the country in the last 21 days: No Have you had contact with anyone from an Ebola affected area: No Have you been sick,other than usual withdrawal symptoms: No Do you have a fever: No - Review of Systems Constitutional: Chills, Loss of Appetite, Night Sweats, Changes in sleep, Unintentional Wgt. Loss EENT: reports: Blurred Vision (WEARS GLASSES), Tearing, Nose Congestion, Dental Problems (ORAL SX WITH DENTURES.) Respiratory: reports: Shortness of Breath (HX ASTHMA), Wheezing Cardiac: reports: Lightheadedness GI: reports: Diarrhea, Nausea, Poor Appetite, Poor Fluid Intake, Vomiting : reports: No Symptoms Reported Musculoskeletal: reports: Back Pain Integumentary: reports: No Symptoms Reported Neuro: reports: Headache, Tremors, Unsteady Gait, Dizziness Endocrine: reports: No Symptoms Reported Hematology: reports: No Symptoms Reported Psychiatric: reports: Orientated x3 Other Systems: Reviewed and Negative Patient History - Patient Medical History Hx Anemia: No Hx Asthma: Yes (on albuterol inhaler) Hx Chronic Obstructive Pulmonary Disease (COPD): No Hx Cancer: No Hx Cardiac Disorders: No Hx Congestive Heart Failure: No Hx Hypertension: Yes (NORVASC ) Hx Hypercholesterolemia: No Hx Pacemaker: No HX Cerebrovascular Accident: No Hx Seizures: No Hx Dementia: No Hx Diabetes: No Hx Gastrointestinal Disorders: No Hx Liver Disease: No Hx Genitourinary Disorders: No Hx Sexually Transmitted Disorders: No Hx Renal Disease (ESRD): No Hx Thyroid Disease: No Hx Human Immunodeficiency Virus (HIV): No (NEGATIVE HX) Hx Hepatitis C: No Hx Depression: No (DENIES) Hx Suicide Attempt: No (DENIES S/I) Hx Bipolar Disorder: No Hx Schizophrenia: No - Patient Surgical History Past Surgical History: No Hx Neurologic Surgery: No Hx Cataract Extraction: No Hx Cardiac Surgery: No Hx Lung Surgery: No Hx Breast Surgery: No Hx Breast Biopsy: No Hx Abdominal Surgery: No Hx Appendectomy: No Hx Cholecystectomy: No Hx Genitourinary Surgery: No Hx Orthopedic Surgery: No Anesthesia Reaction: No - PPD History Previous Implant?: Yes Date: 07/10/16 Results: CX-RAY NEGATIVE PPD to be Administered?: No - Reproductive History Patient is a Female of Child Bearing Age (11 -55 yrs old): No (MALE) - Smoking Cessation Smoking history: Current every day smoker Have you smoked in the past 12 months: Yes Aproximately how many cigarettes per day: 10 Cigars Per Day: 0 Hx Chewing Tobacco Use: No Initiated information on smoking cessation: Yes 'Breaking Loose' booklet given: 07/27/17 - Substance & Tx. History Hx Alcohol Use: Yes (LIQUOR) Hx Substance Use: Yes (HEROIN) Substance Use Type: Alcohol, Heroin Hx Substance Use Treatment: Yes (LAST [place] AT [facility]) - Substances Abused Alcohol Route: Oral Frequency: Daily Amount used: liquor- 2pints, beer- 1 six pack Age of first use: 12 Date of Last Use: 07/27/17 Heroin Route: Inhalation Frequency: Daily Amount used: 10bags Age of first use: 16 Date of Last Use: 07/27/17 Family Disease History - Family Disease History Family Disease History: Other: Father (DEPENDENT ON ETOH AND DRUGS), Brother ( DEPENDENT ON ETOH AND DRUGS) Admission Physical Exam [facility] - Vital Signs Vital Signs: Vital Signs - 24 hr 07/27/17 13:55 Temperature 98.5 F Pulse Rate 73 Respiratory 18 Rate Blood Pressure 136/93 - Physical General Appearance: Yes: Moderate Distress, Irritable, Anxious HEENTM: Yes: EOMI, Normocephalic, MAHENDRA, Pharynx Normal Respiratory: Yes: Chest Non-Tender, Lungs Clear, Normal Breath Sounds, No Respiratory Distress Neck: Yes: No masses,lesions,Nodules, Supple, Trachea in good position Breast: Yes: Breast Exam Deferred Cardiology: Yes: Regular Rhythm, Regular Rate, S1, S2 Abdominal: Yes: Normal Bowel Sounds, Non Tender, Flat, Soft Genitourinary: Yes: Other (N/C) Back: Yes: Within Normal Limits Musculoskeletal: Yes: full range of Motion, Gait Steady Extremities: Yes: Normal Range of Motion, Non-Tender Neurological: Yes: integration architect II-XII NML intact, Fully Oriented, Alert, Motor Strength 5/5 Integumentary: Yes: Dry, Warm Lymphatic: Yes: Within Normal Limits - Diagnostic (1) Alcohol dependence with uncomplicated withdrawal Current Visit: Yes Status: Acute (2) Weight loss Current Visit: Yes Status: Acute (3) Asthma Current Visit: Yes Status: Chronic Qualifiers: Asthma severity: mild persistent (4) HTN (hypertension) Current Visit: Yes Status: Chronic Qualifiers: Hypertension type: essential hypertension Qualified Code(s): I10 - Essential (primary) hypertension (5) Nicotine dependence Current Visit: Yes Status: Acute Qualifiers: Nicotine product type: cigarettes Substance use status: in withdrawal Qualified Code(s): F17.213 - Nicotine dependence, cigarettes, with withdrawal (6) Opioid dependence, uncomplicated Current Visit: Yes Status: Acute Cleared for Admission [facility] - Detox or Rehab [facility] Level of Care: Medically Managed Detox Regimen/Protocol: Methadone/Librium [facility] Breath Alcohol Content Breath Alcohol Content: 0 Urine Drug Screen - Results Drug Screen Negative: No Urine Drug Screen Results: RAMON-Cocaine, OPI-Opiates
[2017-07-27] MEDS ORDERED: IBUPROFEN 400 MG TABLET (FP) PO PRN (19:13)
[2017-07-27] MEDS ORDERED: chlordiazePOXIDE HCL 25 MG CAPSULE PO PRN (19:13)
[2017-07-27] MEDS ORDERED: MENTHOL/PHENOL 1 EACH UD MM PRN (19:13)
[2017-07-27] MEDS ORDERED: MAG HYDROX/AL HYDROX/SIMETH 30 ML UNIT-DOSE CUP PO PRN (19:13)
[2017-07-27] MEDS ORDERED: MAGNESIUM CITRATE 300 ML BOTTLE PO PRN (19:13)
[2017-07-27] MEDS ORDERED: LOPERAMIDE HCL 2 MG CAPSULE PO PRN (19:13)
[2017-07-27] MEDS ORDERED: MAGNESIUM HYDROX 2400MG/30ML ORAL SUSPENSION 30 ML CUP PO PRN (19:13)
[2017-07-27] MEDS ORDERED: P-EPHED 60MG/TRIPROLIDI 2.5MG TABLET PO PRN (19:13)
[2017-07-27] MEDS ORDERED: METHADONE HCL 10 MG TABLET (FOR DETOX USE ONLY) PO ONE ×2 (19:13→23:00)
[2017-07-27] MEDS ORDERED: guaiFENesin/D-METHORPHAN HB 10 ML UNIT-DOSE CUPS PO PRN (19:13)
[2017-07-27] MEDS ORDERED: chlordiazePOXIDE HCL 25 MG CAPSULE PO ONE (19:13)
[2017-07-27] MEDS ORDERED: ACETAMINOPHEN 325 MG TABLET (FP) PO PRN (19:13)
[2017-07-27] MEDS ORDERED: COLLOIDAL OATMEAL 1 BAR EACH TP PRN ×2 (19:17→19:20)
[2017-07-27] MEDS ORDERED: ALBUTEROL SO4 18 GM HFA INHALER IH PRN (19:18)
[2017-07-27] MEDS: amLODIPine BESYLATE 5 MG TABLET (FP) PO SCH (19:59)
[2017-07-27] MEDS: NICOTINE 14 MG/24 HOURS TOPICAL PATCH TD SCH (19:59)
[2017-07-27] MEDS: NICOTINE POLACRILEX 2 MG GUM BC PRN (20:00)
[2017-07-27] MEDS ORDERED: MELATONIN 5 MG TABLETS PO PRN (22:00)
[2017-07-27] MEDS: chlordiazePOXIDE HCL 25 MG CAPSULE PO SCH (22:31)
[2017-07-27] MEDS: THIAMINE HCL 100 MG TABLET (FP) PO SCH (22:31)
[2017-07-28] MEDS: chlordiazePOXIDE HCL 25 MG CAPSULE PO SCH ×4 (05:09→22:21)
[2017-07-28 08:12] LABS: URINE APPEARANCE CLEAR; URINE BILIRUBIN NEGATIVE (<2.0 mg/dL); URINE COLOR YELLOW; URINE GLUCOSE (UA) NEGATIVE (NEGATIVE); URINE KETONE NEGATIVE (NEGATIVE); URINE LEUK ESTERASE NEGATIVE (NEGATIVE); URINE NITRITE NEGATIVE (NEGATIVE); URINE PROTEIN NEGATIVE (NEGATIVE); URINE UROBILINOGEN NEGATIVE mg/dL (0.2-1.0)
--- NOTE | 2017-07-28 09:22 | PN ---
S CIWA - CIWA Score Nausea/Vomitin-No Nausea/No Vomiting Muscle Tremors: 4-Moderate,w/Arms Extend Anxiety: 4-Mod. Anxious/Guarded Agitation: 4-Moderately Restless Paroxysmal Sweats: 1-Minimal Palms Moist Orientation: 0-Oriented Tacttile Disturbances: 0-None Auditory Disturbances: 0-None Visual Disturbances: 0-None Headache: 0-None Present CIWA-Ar Total Score: 13 BHS COWS - Scale Resting Pulse: 0= [place] 80 or Below Sweatin= Chills/Flushing Restless Observation: 1= Difficult to Sit Still Pupil Size: 0= Normal to Room Light Bone or Joint Aches: 2= Severe Diffuse Aches Runny Nose/ Eye Tearin= Nasal Congestion GI Upset > 30mins: 1= Stomach Cramp Tremor Observation of Outstretched Hands: 2= Slight Tremor Visible Yawning Observation: 2= >3x During Session Anxiety or Irritability: 2=Irritable/Anxious Goose Flesh Skin: 0=Smooth Skin COWS Score: 12 S Progress Note (SOAP) Subjective: joint pain body ache tremor sweat trouble sleeping at night Objective: 07/28/17 09:20 Vital Signs Temperature 96.6 F L 07/28/17 06:07 Pulse Rate 76 07/28/17 06:07 Respiratory Rate 18 07/28/17 06:07 Blood Pressure 123/92 07/28/17 06:07 O2 Sat by Pulse Oximetry (%) Laboratory Last Values Urine Color Yellow 07/27/17 07:30 Urine Appearance Clear 07/27/17 07:30 Urine pH 7.0 (5.0-8.0) D 07/27/17 07:30 Ur Specific [place] 1.019 (1.001-1.035) 07/27/17 07:30 Urine Protein Negative (NEGATIVE) 07/27/17 07:30 Urine Glucose (UA) Negative (NEGATIVE) 07/27/17 07:30 Urine Ketones Negative (NEGATIVE) 07/27/17 07:30 Urine Blood Negative (NEGATIVE) 07/27/17 07:30 Urine Nitrite Negative (NEGATIVE) 07/27/17 07:30 Urine Bilirubin Negative (<2.0 mg/dL) 07/27/17 07:30 Urine Urobilinogen Negative mg/dL (0.2-1.0) 07/27/17 07:30 Ur Leukocyte Esterase Negative (NEGATIVE) 07/27/17 07:30 lab noted Assessment: 07/28/17 09:21 withdrawal sx Plan: continue detox
--- NOTE | 2017-07-28 09:52 | EKG ---
Test Reason : Blood Pressure : / mmHG Vent. Rate : 065 BPM Atrial Rate : 065 BPM P-R Int : 164 ms QRS Dur : 088 ms QT Int : 416 ms P-R-T Axes : 059 015 028 degrees QTc Int : 432 ms NORMAL SINUS RHYTHM NORMAL ECG WHEN COMPARED WITH ECG OF 09-JUL-2016 14:52, T WAVE INVERSION NO LONGER EVIDENT IN INFERIOR LEADS T WAVE INVERSION NO LONGER EVIDENT IN ANTERIOR LEADS Confirmed by BROWN PEREZ, LOBO ([id number]) on 07/28/2017 9:51:44 AM Referred By: Confirmed By:LOBO DASILVA MD
[2017-07-28 09:54] LABS: HEMOGLOBIN 14.9 GM/dL (11.7-16.9); MCH 32.7 pg (25.7-33.7); MCHC 34.6 g/dl (32.0-35.9); MEAN CELL VOLUME 94.6 fl (80-96); MEAN PLT VOLUME 9.7 fl (7.5-11.1); PLATELET COUNT 199 K/MM3 (134-434); RBC 4.55 M/mm3 (4.00-5.60); RDW 14.3 % (11.9-15.9); WHITE BLOOD COUNT 4.2 K/mm3 (4.0-10.0)
[2017-07-28] MEDS ORDERED: METHADONE HCL 10 MG TABLET (FOR DETOX USE ONLY) PO SCH (10:00)
[2017-07-28 10:34] LABS: ALBUMIN 3.9 g/dl (3.4-5.0); ALK PHOS 52 U/L (45-117); ANION GAP 4 (8-16); BILIRUBIN,TOTAL 0.3 mg/dL (0.2-1.0); BLOOD UREA NITROGEN 10 mg/dL (7-18); CALCIUM 8.7 mg/dL (8.5-10.1); CHLORIDE 109 mmol/L (98-107); CO2 29 mmol/L (21-32); GLUCOSE,RANDOM 71 mg/dL (74-106); POTASSIUM 3.9 mmol/L (3.5-5.1); SGOT/AST 12 U/L (15-37); SGPT/ALT 15 U/L (12-78); SODIUM 142 mmol/L (136-145); TOT PROT 7.4 g/dl (6.4-8.2)
[2017-07-28] MEDS: amLODIPine BESYLATE 5 MG TABLET (FP) PO SCH (10:36)
[2017-07-28] MEDS: PRENATAL VITAMINS W/ FOLIC ACID TABLET (FP) PO SCH (10:36)
[2017-07-28] MEDS: NICOTINE 14 MG/24 HOURS TOPICAL PATCH TD SCH (10:37)
[2017-07-28] MEDS: NICOTINE POLACRILEX 2 MG GUM BC PRN ×3 (10:37→21:29)
[2017-07-28] MEDS: VITAMINS A AND D TOPICAL OINTMENT 60 GM TUBE TP SCH ×2 (18:30→23:19)
[2017-07-28] MEDS: THIAMINE HCL 100 MG TABLET (FP) PO SCH (22:21)
[2017-07-29] MEDS: chlordiazePOXIDE HCL 25 MG CAPSULE PO SCH ×3 (05:57→17:39)
[2017-07-29] MEDS: VITAMINS A AND D TOPICAL OINTMENT 60 GM TUBE TP SCH ×3 (05:57→22:59)
[2017-07-29] MEDS: NICOTINE POLACRILEX 2 MG GUM BC PRN (09:12)
[2017-07-29] MEDS: METHADONE HCL 5 MG TABLET (FOR DETOX USE ONLY) PO SCH (10:15)
[2017-07-29] MEDS: amLODIPine BESYLATE 5 MG TABLET (FP) PO SCH (10:15)
[2017-07-29] MEDS: PRENATAL VITAMINS W/ FOLIC ACID TABLET (FP) PO SCH (10:15)
[2017-07-29] MEDS: NICOTINE 14 MG/24 HOURS TOPICAL PATCH TD SCH (11:11)
--- NOTE | 2017-07-29 13:59 | PN ---
[facility] CIWA - CIWA Score Nausea/Vomitin-Mild Nausea/No Vomiting Muscle Tremors: 3 Anxiety: 2 Agitation: 2 Paroxysmal Sweats: 1-Minimal Palms Moist Orientation: 0-Oriented Tacttile Disturbances: 1-Very Mild Itch/Numbness Auditory Disturbances: 0-None Visual Disturbances: 0-None Headache: 1-Very Mild CIWA-Ar Total Score: 11 BHS COWS - Scale Resting Pulse: 0= [place] 80 or Below Sweatin= Chills/Flushing Restless Observation: 1= Difficult to Sit Still Pupil Size: 0= Normal to Room Light Bone or Joint Aches: 1= Mild Discomfort Runny Nose/ Eye Tearin= Nasal Congestion GI Upset > 30mins: 1= Stomach Cramp Tremor Observation of Outstretched Hands: 1= Tremor [place], Not Seen Yawning Observation: 2= >3x During Session Anxiety or Irritability: 2=Irritable/Anxious Goose Flesh Skin: 0=Smooth Skin COWS Score: 10 S Progress Note (SOAP) Subjective: body ache joint pain sweat tremor trouble sleeping at night itching skin Objective: 07/29/17 13:58 Vital Signs Temperature 98.1 F 07/29/17 10:00 Pulse Rate 71 07/29/17 10:00 Respiratory Rate 18 07/29/17 10:00 Blood Pressure 117/69 07/29/17 10:00 O2 Sat by Pulse Oximetry (%) Laboratory Last Values WBC 4.2 K/mm3 (4.0-10.0) D 07/28/17 06:00 RBC 4.55 M/mm3 (4.00-5.60) 07/28/17 06:00 Hgb 14.9 GM/dL (11.7-16.9) 07/28/17 06:00 Hct 43.0 % (35.4-49) 07/28/17 06:00 MCV 94.6 fl (80-96) 07/28/17 06:00 MCH 32.7 pg (25.7-33.7) 07/28/17 06:00 MCHC 34.6 g/dl (32.0-35.9) 07/28/17 06:00 RDW 14.3 % (11.9-15.9) 07/28/17 06:00 Plt Count 199 K/MM3 (134-434) 07/28/17 06:00 MPV 9.7 fl (7.5-11.1) 07/28/17 06:00 Sodium 142 mmol/L (136-145) 07/28/17 06:00 Potassium 3.9 mmol/L (3.5-5.1) 07/28/17 06:00 Chloride 109 mmol/L (98-107) H D 07/28/17 06:00 Carbon Dioxide 29 mmol/L (21-32) 07/28/17 06:00 Anion Gap 4 (8-16) L 07/28/17 06:00 BUN 10 mg/dL (7-18) D 07/28/17 06:00 Creatinine 1.0 mg/dL (0.7-1.3) D 07/28/17 06:00 Creat Clearance w eGFR > 60 (>60) 07/28/17 06:00 Random Glucose 71 mg/dL (74-106) L D 07/28/17 06:00 Calcium 8.7 mg/dL (8.5-10.1) 07/28/17 06:00 Total Bilirubin 0.3 mg/dL (0.2-1.0) D 07/28/17 06:00 AST 12 U/L (15-37) L D 07/28/17 06:00 ALT 15 U/L (12-78) D 07/28/17 06:00 Alkaline Phosphatase 52 U/L (45-117) 07/28/17 06:00 Total Protein 7.4 g/dl (6.4-8.2) 07/28/17 06:00 Albumin 3.9 g/dl (3.4-5.0) 07/28/17 06:00 Urine Color Yellow 07/27/17 07:30 Urine Appearance Clear 07/27/17 07:30 Urine pH 7.0 (5.0-8.0) D 07/27/17 07:30 Ur Specific [place] 1.019 (1.001-1.035) 07/27/17 07:30 Urine Protein Negative (NEGATIVE) 07/27/17 07:30 Urine Glucose (UA) Negative (NEGATIVE) 07/27/17 07:30 Urine Ketones Negative (NEGATIVE) 07/27/17 07:30 Urine Blood Negative (NEGATIVE) 07/27/17 07:30 Urine Nitrite Negative (NEGATIVE) 07/27/17 07:30 Urine Bilirubin Negative (<2.0 mg/dL) 07/27/17 07:30 Urine Urobilinogen Negative mg/dL (0.2-1.0) 07/27/17 07:30 Ur Leukocyte Esterase Negative (NEGATIVE) 07/27/17 07:30 RPR Titer Nonreactive (NONREACTIVE) 07/28/17 06:00 lab noted Assessment: 07/29/17 13:59 withdrawal sx Plan: continue detox
[2017-07-29] MEDS: THIAMINE HCL 100 MG TABLET (FP) PO SCH (22:42)
[2017-07-29] MEDS: chlordiazePOXIDE 5 MG CAPSULE PO SCH (22:42)
[2017-07-29] MEDS: MINERAL OIL/PETROLAT/WATER TOPICAL CREAM 113 GM JAR TP SCH (22:44)
[2017-07-30] MEDS: chlordiazePOXIDE 5 MG CAPSULE PO SCH ×3 (05:57→17:49)
[2017-07-30] MEDS: VITAMINS A AND D TOPICAL OINTMENT 60 GM TUBE TP SCH ×3 (05:58→23:13)
[2017-07-30] MEDS: NICOTINE POLACRILEX 2 MG GUM BC PRN (06:02)
[2017-07-30] MEDS: amLODIPine BESYLATE 5 MG TABLET (FP) PO SCH (10:35)
[2017-07-30] MEDS: PRENATAL VITAMINS W/ FOLIC ACID TABLET (FP) PO SCH (10:35)
[2017-07-30] MEDS: NICOTINE 14 MG/24 HOURS TOPICAL PATCH TD SCH (10:36)
[2017-07-30] MEDS: METHADONE HCL 5 MG TABLET (FOR DETOX USE ONLY) PO SCH (10:36)
--- NOTE | 2017-07-30 10:58 | PN ---
[facility] Progress Note (SOAP) Subjective: joint pain body ache sweat tremor gi distress trouble sleep at night Objective: 07/30/17 10:57 Vital Signs Temperature 97.5 F L 07/30/17 10:39 Pulse Rate 67 07/30/17 10:39 Respiratory Rate 20 07/30/17 10:39 Blood Pressure 110/78 07/30/17 10:39 O2 Sat by Pulse Oximetry (%) Laboratory Last Values WBC 4.2 K/mm3 (4.0-10.0) D 07/28/17 06:00 RBC 4.55 M/mm3 (4.00-5.60) 07/28/17 06:00 Hgb 14.9 GM/dL (11.7-16.9) 07/28/17 06:00 Hct 43.0 % (35.4-49) 07/28/17 06:00 MCV 94.6 fl (80-96) 07/28/17 06:00 MCH 32.7 pg (25.7-33.7) 07/28/17 06:00 MCHC 34.6 g/dl (32.0-35.9) 07/28/17 06:00 RDW 14.3 % (11.9-15.9) 07/28/17 06:00 Plt Count 199 K/MM3 (134-434) 07/28/17 06:00 MPV 9.7 fl (7.5-11.1) 07/28/17 06:00 Sodium 142 mmol/L (136-145) 07/28/17 06:00 Potassium 3.9 mmol/L (3.5-5.1) 07/28/17 06:00 Chloride 109 mmol/L (98-107) H D 07/28/17 06:00 Carbon Dioxide 29 mmol/L (21-32) 07/28/17 06:00 Anion Gap 4 (8-16) L 07/28/17 06:00 BUN 10 mg/dL (7-18) D 07/28/17 06:00 Creatinine 1.0 mg/dL (0.7-1.3) D 07/28/17 06:00 Creat Clearance w eGFR > 60 (>60) 07/28/17 06:00 Random Glucose 71 mg/dL (74-106) L D 07/28/17 06:00 Calcium 8.7 mg/dL (8.5-10.1) 07/28/17 06:00 Total Bilirubin 0.3 mg/dL (0.2-1.0) D 07/28/17 06:00 AST 12 U/L (15-37) L D 07/28/17 06:00 ALT 15 U/L (12-78) D 07/28/17 06:00 Alkaline Phosphatase 52 U/L (45-117) 07/28/17 06:00 Total Protein 7.4 g/dl (6.4-8.2) 07/28/17 06:00 Albumin 3.9 g/dl (3.4-5.0) 07/28/17 06:00 Urine Color Yellow 07/27/17 07:30 Urine Appearance Clear 07/27/17 07:30 Urine pH 7.0 (5.0-8.0) D 07/27/17 07:30 Ur Specific [place] 1.019 (1.001-1.035) 07/27/17 07:30 Urine Protein Negative (NEGATIVE) 07/27/17 07:30 Urine Glucose (UA) Negative (NEGATIVE) 07/27/17 07:30 Urine Ketones Negative (NEGATIVE) 07/27/17 07:30 Urine Blood Negative (NEGATIVE) 07/27/17 07:30 Urine Nitrite Negative (NEGATIVE) 07/27/17 07:30 Urine Bilirubin Negative (<2.0 mg/dL) 07/27/17 07:30 Urine Urobilinogen Negative mg/dL (0.2-1.0) 07/27/17 07:30 Ur Leukocyte Esterase Negative (NEGATIVE) 07/27/17 07:30 RPR Titer Nonreactive (NONREACTIVE) 07/28/17 06:00 lab noted Assessment: 07/30/17 10:58 withdrawal sx Plan: continue detox
[2017-07-30] MEDS: AMMONIUM LACTATE 12% LOTION 225 GM BOTTLE TP SCH ×2 (15:59→22:07)
[2017-07-30] MEDS: chlordiazePOXIDE HCL 10 MG CAPSULE PO SCH (22:07)
[2017-07-30] MEDS: MINERAL OIL/PETROLAT/WATER TOPICAL CREAM 113 GM JAR TP SCH (22:07)
[2017-07-30] MEDS: THIAMINE HCL 100 MG TABLET (FP) PO SCH (22:07)
[2017-07-31] MEDS: VITAMINS A AND D TOPICAL OINTMENT 60 GM TUBE TP SCH ×2 (00:44→05:08)
[2017-07-31] MEDS: chlordiazePOXIDE HCL 10 MG CAPSULE PO SCH ×2 (05:06→10:15)
[2017-07-31] MEDS ORDERED: METHADONE HCL 10 MG TABLET (FOR DETOX USE ONLY) PO SCH (10:00)
[2017-07-31] MEDS: PRENATAL VITAMINS W/ FOLIC ACID TABLET (FP) PO SCH (10:15)
[2017-07-31] MEDS: amLODIPine BESYLATE 5 MG TABLET (FP) PO SCH (10:15)
[2017-07-31] MEDS: AMMONIUM LACTATE 12% LOTION 225 GM BOTTLE TP SCH (10:16)
[2017-07-31] MEDS: NICOTINE 14 MG/24 HOURS TOPICAL PATCH TD SCH (10:18)
--- NOTE | 2017-07-31 10:51 | DS ---
[facility] Detox Discharge Summary Admission Date: 07/27/17 Discharge Date: 07/31/17 - History Present History: Alcohol Dependence, Cannabis Dependence, Cocaine Dependence, Opioid Dependence Pertinent Past History: HTN, syncope, asthma and weight loss - Physical Exam Results Vital Signs: Vital Signs Temperature 97.7 F 07/31/17 06:21 Pulse Rate 67 07/31/17 06:21 Respiratory Rate 18 07/31/17 06:21 Blood Pressure 113/75 07/31/17 06:21 O2 Sat by Pulse Oximetry (%) - Treatment Hospital Course: Detox Protocol Followed, Detoxed Safely, Responded well, Discharged Condition Good - Medication Discharge Medications: Ambulatory Orders Albuterol Sulfate Inhaler - [Ventolin HFA Inhaler -] 2 puff IH Q4H PRN #0 inhaler 11/01/15 Amlodipine Besylate [Norvasc -] 5 mg PO DAILY 04/20/16 Pseudoephedrine HCl [Sudafed 12 Hour] 120 mg PO BID 07/09/16 - Diagnosis (1) Alcohol dependence with uncomplicated withdrawal Current Visit: Yes Status: Acute (2) Nicotine dependence Current Visit: Yes Status: Acute Qualifiers: Nicotine product type: cigarettes Substance use status: uncomplicated Qualified Code(s): F17.210 - Nicotine dependence, cigarettes, uncomplicated (3) Opioid dependence, uncomplicated Current Visit: Yes Status: Acute (4) Asthma Current Visit: Yes Status: Chronic Qualifiers: Asthma severity: mild persistent (5) HTN (hypertension) Current Visit: Yes Status: Chronic Qualifiers: Hypertension type: essential hypertension Qualified Code(s): I10 - Essential (primary) hypertension (6) Drug-induced mood disorder Current Visit: No Status: Acute (7) Methadone maintenance therapy patient Current Visit: No Status: Acute (8) Cocaine dependence, uncomplicated Current Visit: No Status: Chronic - AMA Did Patient Leave Against Medical Advice: No
[2017-07-31 10:57] VITALS: BP 117/85; PULSE 73; TEMP 98.1
[2017-08-01] MEDS ORDERED: METHADONE HCL 5 MG TABLET (FOR DETOX USE ONLY) PO SCH (06:00)
== END 2017-07-31 11:08 | disposition home or self-care (01) | DRG 773 ==
LOC: YASAS 12:10 → Y6N 18:12
PROVIDERS: ADMIT Internal Medicine; ATTEND Internal Medicine
PROC: HZ2ZZZZ Detoxification Services for Substance Abuse Treatment (ICD-10-PCS; principal; 2017-07-27)
DX: F11.23 Opioid dependence with withdrawal (principal); F10.230 Alcohol dependence with withdrawal, uncomplicated; F14.20 Cocaine dependence, uncomplicated; F17.210 Nicotine dependence, cigarettes, uncomplicated; F19.24 Other psychoactive substance dependence with psychoactive substance-induced mood disorder; I10 Essential (primary) hypertension; J45.22 Mild intermittent asthma with status asthmaticus; R63.4 Abnormal weight loss; Z68.23 Body mass index [BMI] 23.0-23.9, adult; Z88.4 Allergy status to anesthetic agent
CPT/HCPCS: 36415; 80053; 81003; 85027; 86593; 93005; 93010

== ENCOUNTER 2017-09-03 17:42 | Inpatient (IN) | payer OTHER ==
[2017-09-03 18:01] VITALS: BMI 23.7
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
[2017-09-03] MEDS ORDERED: IBUPROFEN 400 MG TABLET (FP) PO PRN (21:23)
[2017-09-03] MEDS ORDERED: guaiFENesin/D-METHORPHAN HB 10 ML UNIT-DOSE CUPS PO PRN (21:23)
[2017-09-03] MEDS ORDERED: MAG HYDROX/AL HYDROX/SIMETH 30 ML UNIT-DOSE CUP PO PRN (21:23)
[2017-09-03] MEDS ORDERED: MENTHOL/PHENOL 1 EACH UD MM PRN (21:23)
[2017-09-03] MEDS ORDERED: P-EPHED 60MG/TRIPROLIDI 2.5MG TABLET PO PRN (21:23)
[2017-09-03] MEDS ORDERED: LOPERAMIDE HCL 2 MG CAPSULE PO PRN (21:23)
[2017-09-03] MEDS ORDERED: diazePAM 5 MG TABLET PO PRN (21:23)
[2017-09-03] MEDS ORDERED: MAGNESIUM HYDROX 2400MG/30ML ORAL SUSPENSION 30 ML CUP PO PRN (21:23)
[2017-09-03] MEDS ORDERED: MAGNESIUM CITRATE 300 ML BOTTLE PO PRN (21:23)
[2017-09-03] MEDS ORDERED: diazePAM 5 MG TABLET PO ONE (21:23)
[2017-09-03] MEDS ORDERED: ALBUTEROL SO4 18 GM HFA INHALER IH PRN (21:28)
[2017-09-03] MEDS ORDERED: METHADONE HCL 10 MG TABLET (FOR DETOX USE ONLY) PO ONE ×4 (21:45→23:59)
[2017-09-03] MEDS ORDERED: diazePAM 5 MG TABLET PO SCH (22:00)
[2017-09-03] MEDS ORDERED: MELATONIN 5 MG TABLETS PO PRN (22:00)
[2017-09-03] MEDS ORDERED: chlordiazePOXIDE HCL 25 MG CAPSULE PO SCH (23:00)
[2017-09-03] MEDS ORDERED: METHADONE HCL 10 MG TABLET (FOR DETOX USE ONLY) ONE (23:51)
[2017-09-03] MEDS ORDERED: chlordiazePOXIDE HCL 25 MG CAPSULE PO PRN (23:59)
[2017-09-04] MEDS: THIAMINE HCL 100 MG TABLET (FP) PO SCH ×2 (00:39→22:11)
[2017-09-04] MEDS ORDERED: cloNIDine HCL 0.1 MG TABLET PO ONE (00:42)
--- NOTE | 2017-09-04 00:46 | PN ---
S Progress Note Note: Patient's blood pressure is B/P 147/103. Patient is asymptomatic Vital Signs Temperature 99.1 F 09/04/17 00:10 Pulse Rate 76 09/04/17 00:10 Respiratory Rate 18 09/04/17 00:10 Blood Pressure 147/106 09/04/17 00:10 O2 Sat by Pulse Oximetry (%) Action: Clonidine 0.1mg tablet oral ordered
[2017-09-04] MEDS ORDERED: chlordiazePOXIDE HCL 25 MG CAPSULE PO PRN (00:51)
[2017-09-04] MEDS ORDERED: METHADONE HCL 10 MG TABLET (FOR DETOX USE ONLY) PO ONE ×3 (00:51→22:00)
[2017-09-04] MEDS: chlordiazePOXIDE HCL 25 MG CAPSULE PO SCH ×4 (05:17→22:11)
[2017-09-04] MEDS ORDERED: COLLOIDAL OATMEAL 1 BAR EACH TP PRN (06:48)
[2017-09-04] MEDS: NICOTINE POLACRILEX 2 MG GUM BC PRN ×3 (08:00→15:35)
[2017-09-04] MEDS ORDERED: METHADONE HCL 10 MG TABLET (FOR DETOX USE ONLY) PO SCH ×2 (10:00)
[2017-09-04] MEDS: amLODIPine BESYLATE 10 MG TABLET (FP) PO SCH (10:14)
[2017-09-04] MEDS: NICOTINE 14 MG/24 HOURS TOPICAL PATCH TD SCH (10:14)
[2017-09-04] MEDS: PRENATAL VITAMINS W/ FOLIC ACID TABLET (FP) PO SCH (10:14)
[2017-09-04 10:54] LABS: HEMATOCRIT 44.7 % (35.4-49); HEMOGLOBIN 15.1 GM/dL (11.7-16.9); MCH 32.2 pg (25.7-33.7); MCHC 33.9 g/dl (32.0-35.9); MEAN PLT VOLUME 9.9 fl (7.5-11.1); PLATELET COUNT 209 K/MM3 (134-434); RBC 4.71 M/mm3 (4.00-5.60); RDW 14.6 % (11.9-15.9); WHITE BLOOD COUNT 6.5 K/mm3 (4.0-10.0)
[2017-09-04 11:03] LABS: CHLORIDE 104 mmol/L (98-107); POTASSIUM 4.4 mmol/L (3.5-5.1); SODIUM 141 mmol/L (136-145)
[2017-09-04 11:11] LABS: ALBUMIN 3.9 g/dl (3.4-5.0); ALK PHOS 56 U/L (45-117); ANION GAP 7 (8-16); BILIRUBIN,TOTAL 0.3 mg/dL (0.2-1.0); BLOOD UREA NITROGEN 12 mg/dL (7-18); CALCIUM 9.4 mg/dL (8.5-10.1); CO2 30 mmol/L (21-32); CREATININE 1.1 mg/dL (0.7-1.3); GLUCOSE,RANDOM 104 mg/dL (74-106); SGOT/AST 27 U/L (15-37); SGPT/ALT 45 U/L (12-78); TOT PROT 7.8 g/dl (6.4-8.2)
[2017-09-04] MEDS: AMMONIUM LACTATE 12% LOTION 225 GM BOTTLE TP SCH ×2 (13:41→22:11)
--- NOTE | 2017-09-04 14:39 | CONSULT ---
[facility] Psychiatric Consult - Data Date of interview: 09/04/17 Admission source: [facility] Identifying data: Reamission to [facility] for this 52 y/o AA male seeking detox treatment on for alcohol,heroin and cocaine dependence.Patient is ,a father of one,domiciled and employed. Substance Abuse History: Confirmed by patient in this interview.Smoking history : Current every day smoker. Have you smoked in the past 12 months: Yes. Aproximately how many cigarettes per day: 10. Cigars Per Day: 0. Hx Chewing Tobacco Use: No. Initiated information on smoking cessation: Yes. 'Breaking Loose' booklet given: 09/03/17. - Substance & Tx. History. Hx Alcohol Use: Yes. Hx Substance Use: Yes. Substance Use Type: Cocaine, Heroin. Hx Substance Use Treatment: Yes (Detoxes in past. ). - Substances Abused. Alcohol. Route: Oral. Frequency: Daily. Amount used: LIQUOR- 1 PINT, BEER- 1 SIX PACK. Age of first use: 12. Date of Last Use: 09/03/17 (11:30 am). Heroin. Route: Inhalation. Frequency: Daily. Amount used: 8 BAGS. Age of first use: 48. Date of Last Use: 09/03/17 (3 am). Cocaine. Route: Inhalation. Frequency: 1-2 times per week. Amount used: 1/2 gm. Age of first use: 20. Date of Last Use: 09/01/17 Medical History: Hypertension,bronchial asthma and dyslipidemia. Psychiatric History: Patient denies. Physical/Sexual Abuse/Trauma History: No history reported. Additional Comment: Urine Drug Screen Results: RAMON-Cocaine, OPI-Opiates, BZO- Benzodiazepines, MTD-Methadone.Noted. Mental Status Exam - Mental Status Exam Alert and Oriented to: Time, Place, Person Cognitive Function: Good Patient Appearance: Well Groomed Mood: Hopeful, Euthymic Affect: Appropriate, Normal Range Patient Behavior: Cooperative Speech Pattern: Clear, Appropriate Voice Loudness: Normal Thought Process: Intact, Goal Oriented Thought Disorder: Not Present Hallucinations: Denies Suicidal Ideation: Denies Homicidal Ideation: Denies Insight/Judgement: Fair Sleep: Poorly, Difficulty falling asleep Appetite: Good Muscle strength/Tone: Normal Gait/Station: Normal Psychiatric Findings - Problem List (Mobile 1, 2,3) (1) Alcohol dependence with uncomplicated withdrawal Current Visit: Yes Status: Acute (2) Opioid dependence, uncomplicated Current Visit: Yes Status: Acute (3) Cocaine dependence, uncomplicated Current Visit: Yes Status: Acute (4) Nicotine dependence Current Visit: Yes Status: Acute Qualifiers: Nicotine product type: cigarettes Substance use status: uncomplicated Qualified Code(s): F17.210 - Nicotine dependence, cigarettes, uncomplicated - Initial Treatment Plan Initial Treatment Plan: Psychoeducation.Sleep hygiene.Detoxification.Ambien 10 mg po hs prn.Patient is made aware of potential for parasomnias.Agrees to careplan.Observation.
--- NOTE | 2017-09-04 14:48 | EKG ---
Test Reason : Blood Pressure : / mmHG Vent. Rate : 075 BPM Atrial Rate : 075 BPM P-R Int : 156 ms QRS Dur : 080 ms QT Int : 400 ms P-R-T Axes : 048 -08 015 degrees QTc Int : 446 ms NORMAL SINUS RHYTHM POSSIBLE LEFT ATRIAL ENLARGEMENT BORDERLINE ECG WHEN COMPARED WITH ECG OF 27-JUL-2017 20:05, NO SIGNIFICANT CHANGE WAS FOUND Confirmed by MD Garcia Daniel ([id number]) on 09/04/2017 2:48:23 PM Referred By: Confirmed By:Munir Garcia MD
[2017-09-04 21:36] LABS: URINE APPEARANCE TURBID; URINE BILIRUBIN NEGATIVE (<2.0 mg/dL); URINE COLOR YELLOW; URINE GLUCOSE (UA) NEGATIVE (NEGATIVE); URINE KETONE NEGATIVE (NEGATIVE); URINE LEUK ESTERASE TRACE (NEGATIVE); URINE NITRITE NEGATIVE (NEGATIVE); URINE PROTEIN NEGATIVE (NEGATIVE)
[2017-09-04 21:42] LABS: URINE BACTERIA MODERATE /hpf (NONE SEEN); URINE MUCUS FEW
[2017-09-04] MEDS: hydrOXYzine PAMOATE 50 MG CAPSULE (FP) PO PRN (22:12)
[2017-09-04] MEDS ORDERED: chlordiazePOXIDE HCL 25 MG CAPSULE PO SCH (23:00)
[2017-09-05] MEDS: chlordiazePOXIDE HCL 25 MG CAPSULE PO SCH ×4 (05:04→22:06)
[2017-09-05] MEDS ORDERED: METHADONE HCL 10 MG TABLET (FOR DETOX USE ONLY) PO SCH (10:00)
[2017-09-05] MEDS ORDERED: METHADONE HCL 5 MG TABLET (FOR DETOX USE ONLY) PO SCH ×2 (10:00)
[2017-09-05] MEDS ORDERED: diazePAM 5 MG TABLET PO SCH (10:00)
[2017-09-05] MEDS: amLODIPine BESYLATE 10 MG TABLET (FP) PO SCH (10:04)
[2017-09-05] MEDS: AMMONIUM LACTATE 12% LOTION 225 GM BOTTLE TP SCH ×2 (10:05→22:06)
[2017-09-05] MEDS: NICOTINE 14 MG/24 HOURS TOPICAL PATCH TD SCH (10:05)
[2017-09-05] MEDS: PRENATAL VITAMINS W/ FOLIC ACID TABLET (FP) PO SCH (10:05)
[2017-09-05] MEDS: NICOTINE POLACRILEX 2 MG GUM BC PRN ×3 (10:05→22:09)
--- NOTE | 2017-09-05 11:36 | PN ---
S CIWA - CIWA Score Nausea/Vomitin-No Nausea/No Vomiting Muscle Tremors: 4-Moderate,w/Arms Extend Anxiety: 5 Agitation: 4-Moderately Restless Paroxysmal Sweats: 1-Minimal Palms Moist Orientation: 0-Oriented Tacttile Disturbances: 0-None Auditory Disturbances: 0-None Visual Disturbances: 0-None Headache: 0-None Present CIWA-Ar Total Score: 14 S COWS - Scale Resting Pulse: 0= [place] 80 or Below Sweatin= Chills/Flushing Restless Observation: 3= Extraneous Movement Pupil Size: 2= Moderately Dilated Bone or Joint Aches: 1= Mild Discomfort Runny Nose/ Eye Tearin= Nasal Congestion GI Upset > 30mins: 0= None Tremor Observation of Outstretched Hands: 1= Tremor [place], Not Seen Yawning Observation: 1= 1-2x During Session Anxiety or Irritability: 2=Irritable/Anxious Goose Flesh Skin: 0=Smooth Skin COWS Score: 12 S Progress Note (SOAP) Subjective: ANXIETY,SWEATS,IRRITABILITY,RESTLESSNESS. OOB WITH STEADY GAIT. Objective: 09/05/17 11:35 Vital Signs 09/05/17 09/05/17 06:08 09:32 Temperature 97.5 F L 96.1 F L Pulse Rate 60 65 Respiratory 18 18 Rate Blood Pressure 98/64 112/77 Laboratory Tests 09/04/17 09/04/17 09/04/17 07:55 07:55 07:55 WBC 6.5 D RBC 4.71 Hgb 15.1 Hct 44.7 MCV 95.0 MCH 32.2 MCHC 33.9 RDW 14.6 Plt Count 209 MPV 9.9 Sodium 141 Potassium 4.4 Chloride 104 Carbon Dioxide 30 Anion Gap 7 L BUN 12 Creatinine 1.1 Creat Clearance w eGFR > 60 Random Glucose 104 D Calcium 9.4 Total Bilirubin 0.3 AST 27 D ALT 45 D Alkaline Phosphatase 56 Total Protein 7.8 Albumin 3.9 Urine Color Urine Appearance Urine pH Ur Specific [place] Urine Protein Urine Glucose (UA) Urine Ketones Urine Blood Urine Nitrite Urine Bilirubin Urine Urobilinogen Ur Leukocyte Esterase Urine WBC (Auto) Urine RBC (Auto) Urine Bacteria Urine Mucus RPR Titer Nonreactive 09/04/17 18:00 WBC RBC Hgb Hct MCV MCH MCHC RDW Plt Count MPV Sodium Potassium Chloride Carbon Dioxide Anion Gap BUN Creatinine Creat Clearance w eGFR Random Glucose Calcium Total Bilirubin AST ALT Alkaline Phosphatase Total Protein Albumin Urine Color Yellow Urine Appearance Turbid Urine pH 5.0 D Ur Specific [place] 1.030 Urine Protein Negative Urine Glucose (UA) Negative Urine Ketones Negative Urine Blood Negative Urine Nitrite Negative Urine Bilirubin Negative Urine Urobilinogen 2.0 Ur Leukocyte Esterase Trace Urine WBC (Auto) 60 Urine RBC (Auto) 3 Urine Bacteria Moderate Urine Mucus Few RPR Titer Assessment: 09/05/17 11:35 WITHDRAWAL SX Plan: CONTINUE DETOX
[2017-09-05] MEDS: ACETAMINOPHEN 325 MG TABLET (FP) PO PRN (12:24)
[2017-09-05] MEDS: ZOLPIDEM TARTRATE 5 MG TABLET PO PRN (22:06)
[2017-09-05] MEDS: THIAMINE HCL 100 MG TABLET (FP) PO SCH (22:06)
[2017-09-05] MEDS ORDERED: chlordiazePOXIDE 5 MG CAPSULE PO SCH (23:00)
[2017-09-06] MEDS: NICOTINE POLACRILEX 2 MG GUM BC PRN ×2 (05:28→10:08)
[2017-09-06] MEDS: chlordiazePOXIDE 5 MG CAPSULE PO SCH ×4 (05:28→22:11)
[2017-09-06] MEDS: PRENATAL VITAMINS W/ FOLIC ACID TABLET (FP) PO SCH (10:06)
[2017-09-06] MEDS: amLODIPine BESYLATE 10 MG TABLET (FP) PO SCH (10:06)
[2017-09-06] MEDS: METHADONE HCL 5 MG TABLET (FOR DETOX USE ONLY) PO SCH (10:06)
[2017-09-06] MEDS: NICOTINE 14 MG/24 HOURS TOPICAL PATCH TD SCH (10:08)
[2017-09-06] MEDS: AMMONIUM LACTATE 12% LOTION 225 GM BOTTLE TP SCH ×2 (10:11→22:35)
--- NOTE | 2017-09-06 10:15 | PN ---
S CIWA - CIWA Score Nausea/Vomitin-No Nausea/No Vomiting Muscle Tremors: 3 Anxiety: 4-Mod. Anxious/Guarded Agitation: 3 Paroxysmal Sweats: 1-Minimal Palms Moist Orientation: 0-Oriented Tacttile Disturbances: 0-None Auditory Disturbances: 0-None Visual Disturbances: 0-None Headache: 0-None Present CIWA-Ar Total Score: 11 [facility] Progress Note (SOAP) Subjective: PT REPORTS LESS ANXIETY,IRRITABILITY,TREMORS AND SWEATS TODAY. ALERT O X 3. OOB AMBULATING WITH STEADY GAIT. Objective: 09/06/17 10:14 Vital Signs 09/06/17 09/06/17 06:26 09:03 Temperature 97.4 F L 96.8 F L Pulse Rate 71 74 Respiratory 18 18 Rate Blood Pressure 124/87 134/89 Laboratory Tests 09/04/17 09/04/17 09/04/17 07:55 07:55 07:55 WBC 6.5 D RBC 4.71 Hgb 15.1 Hct 44.7 MCV 95.0 MCH 32.2 MCHC 33.9 RDW 14.6 Plt Count 209 MPV 9.9 Sodium 141 Potassium 4.4 Chloride 104 Carbon Dioxide 30 Anion Gap 7 L BUN 12 Creatinine 1.1 Creat Clearance w eGFR > 60 Random Glucose 104 D Calcium 9.4 Total Bilirubin 0.3 AST 27 D ALT 45 D Alkaline Phosphatase 56 Total Protein 7.8 Albumin 3.9 Urine Color Urine Appearance Urine pH Ur Specific [place] Urine Protein Urine Glucose (UA) Urine Ketones Urine Blood Urine Nitrite Urine Bilirubin Urine Urobilinogen Ur Leukocyte Esterase Urine WBC (Auto) Urine RBC (Auto) Urine Bacteria Urine Mucus RPR Titer Nonreactive 09/04/17 18:00 WBC RBC Hgb Hct MCV MCH MCHC RDW Plt Count MPV Sodium Potassium Chloride Carbon Dioxide Anion Gap BUN Creatinine Creat Clearance w eGFR Random Glucose Calcium Total Bilirubin AST ALT Alkaline Phosphatase Total Protein Albumin Urine Color Yellow Urine Appearance Turbid Urine pH 5.0 D Ur Specific [place] 1.030 Urine Protein Negative Urine Glucose (UA) Negative Urine Ketones Negative Urine Blood Negative Urine Nitrite Negative Urine Bilirubin Negative Urine Urobilinogen 2.0 Ur Leukocyte Esterase Trace Urine WBC (Auto) 60 Urine RBC (Auto) 3 Urine Bacteria Moderate Urine Mucus Few RPR Titer Assessment: 09/06/17 10:14 WITHDRAWAL SX Plan: CONTINUE DETOX
--- NOTE | 2017-09-06 18:08 | PN ---
[facility] Progress Note Note: Patient currently only on 2 mg nicotine gum. Patient reports 2mg Nicotine gum does no help with nicotine craving. Dose adjusted to 4mg. Continue to monitor
[2017-09-06] MEDS: NICOTINE POLACRILEX 4 MG GUM BUC PRN (21:00)
[2017-09-06] MEDS: ZOLPIDEM TARTRATE 5 MG TABLET PO PRN (22:12)
[2017-09-06] MEDS: THIAMINE HCL 100 MG TABLET (FP) PO SCH (22:12)
[2017-09-06] MEDS ORDERED: chlordiazePOXIDE HCL 10 MG CAPSULE PO SCH (23:00)
[2017-09-07] MEDS: chlordiazePOXIDE HCL 10 MG CAPSULE PO SCH ×4 (05:35→22:07)
[2017-09-07] MEDS: ACETAMINOPHEN 325 MG TABLET (FP) PO PRN (09:20)
[2017-09-07] MEDS ORDERED: diazePAM 5 MG TABLET PO SCH (10:00)
[2017-09-07] MEDS ORDERED: METHADONE HCL 10 MG TABLET (FOR DETOX USE ONLY) PO SCH ×2 (10:00)
[2017-09-07] MEDS: METHADONE HCL 5 MG TABLET (FOR DETOX USE ONLY) PO SCH (10:04)
[2017-09-07] MEDS: NICOTINE POLACRILEX 4 MG GUM BUC PRN (10:04)
[2017-09-07] MEDS: amLODIPine BESYLATE 10 MG TABLET (FP) PO SCH (10:04)
[2017-09-07] MEDS: PRENATAL VITAMINS W/ FOLIC ACID TABLET (FP) PO SCH (10:04)
[2017-09-07] MEDS: NICOTINE 14 MG/24 HOURS TOPICAL PATCH TD SCH (10:04)
[2017-09-07] MEDS: AMMONIUM LACTATE 12% LOTION 225 GM BOTTLE TP SCH (10:38)
--- NOTE | 2017-09-07 11:08 | PN ---
[facility] Progress Note (SOAP) Subjective: ANXIETY,SWEATS,HEADACHE, INTERMITTENT SLEEP. Objective: 09/07/17 11:06 Vital Signs 09/07/17 09/07/17 06:10 09:04 Temperature 97.3 F L 97.2 F L Pulse Rate 63 69 Respiratory 18 18 Rate Blood Pressure 126/82 118/85 Laboratory Tests 09/04/17 09/04/17 09/04/17 07:55 07:55 07:55 WBC 6.5 D RBC 4.71 Hgb 15.1 Hct 44.7 MCV 95.0 MCH 32.2 MCHC 33.9 RDW 14.6 Plt Count 209 MPV 9.9 Sodium 141 Potassium 4.4 Chloride 104 Carbon Dioxide 30 Anion Gap 7 L BUN 12 Creatinine 1.1 Creat Clearance w eGFR > 60 Random Glucose 104 D Calcium 9.4 Total Bilirubin 0.3 AST 27 D ALT 45 D Alkaline Phosphatase 56 Total Protein 7.8 Albumin 3.9 Urine Color Urine Appearance Urine pH Ur Specific [place] Urine Protein Urine Glucose (UA) Urine Ketones Urine Blood Urine Nitrite Urine Bilirubin Urine Urobilinogen Ur Leukocyte Esterase Urine WBC (Auto) Urine RBC (Auto) Urine Bacteria Urine Mucus RPR Titer Nonreactive 09/04/17 18:00 WBC RBC Hgb Hct MCV MCH MCHC RDW Plt Count MPV Sodium Potassium Chloride Carbon Dioxide Anion Gap BUN Creatinine Creat Clearance w eGFR Random Glucose Calcium Total Bilirubin AST ALT Alkaline Phosphatase Total Protein Albumin Urine Color Yellow Urine Appearance Turbid Urine pH 5.0 D Ur Specific [place] 1.030 Urine Protein Negative Urine Glucose (UA) Negative Urine Ketones Negative Urine Blood Negative Urine Nitrite Negative Urine Bilirubin Negative Urine Urobilinogen 2.0 Ur Leukocyte Esterase Trace Urine WBC (Auto) 60 Urine RBC (Auto) 3 Urine Bacteria Moderate Urine Mucus Few RPR Titer Assessment: 09/07/17 11:06 WITHDRAWAL SX Plan: CONTINUE DETOX VISTAR[place] PRN MELATONIN DIRECTED FOR SLEEP. INCREASE PO FLUIDS
[2017-09-07] MEDS: MINERAL OIL/PETROLAT/WATER TOPICAL CREAM 113 GM JAR TP SCH ×2 (15:41→22:14)
[2017-09-07] MEDS: THIAMINE HCL 100 MG TABLET (FP) PO SCH (22:07)
[2017-09-07] MEDS: hydrOXYzine PAMOATE 50 MG CAPSULE (FP) PO PRN (22:08)
[2017-09-08] MEDS: hydrOXYzine PAMOATE 50 MG CAPSULE (FP) PO PRN (05:36)
[2017-09-08] MEDS ORDERED: METHADONE HCL 5 MG TABLET (FOR DETOX USE ONLY) PO SCH ×2 (06:00)
[2017-09-08] MEDS ORDERED: METHADONE HCL 10 MG TABLET (FOR DETOX USE ONLY) PO SCH (10:00)
[2017-09-08] MEDS: PRENATAL VITAMINS W/ FOLIC ACID TABLET (FP) PO SCH (10:08)
[2017-09-08] MEDS: amLODIPine BESYLATE 10 MG TABLET (FP) PO SCH (10:08)
[2017-09-08] MEDS: NICOTINE 14 MG/24 HOURS TOPICAL PATCH TD SCH (10:09)
[2017-09-08] MEDS: MINERAL OIL/PETROLAT/WATER TOPICAL CREAM 113 GM JAR TP SCH ×2 (10:09→22:21)
[2017-09-08] MEDS: NICOTINE POLACRILEX 4 MG GUM BUC PRN ×2 (10:11→17:48)
--- NOTE | 2017-09-08 10:12 | PN ---
[facility] Progress Note (SOAP) Subjective: ANXIETY,FATIGUE,INTERMITTENT SLEEP-SAYS [place] NOT EFFECTIVE. Objective: 09/08/17 10:11 Vital Signs 09/08/17 09/08/17 09/08/17 03:30 06:35 09:13 Temperature 98.1 F 96.3 F L Pulse Rate 59 L 68 Respiratory 18 18 18 Rate Blood Pressure 111/76 123/78 Laboratory Tests 09/04/17 09/04/17 09/04/17 07:55 07:55 07:55 WBC 6.5 D RBC 4.71 Hgb 15.1 Hct 44.7 MCV 95.0 MCH 32.2 MCHC 33.9 RDW 14.6 Plt Count 209 MPV 9.9 Sodium 141 Potassium 4.4 Chloride 104 Carbon Dioxide 30 Anion Gap 7 L BUN 12 Creatinine 1.1 Creat Clearance w eGFR > 60 Random Glucose 104 D Calcium 9.4 Total Bilirubin 0.3 AST 27 D ALT 45 D Alkaline Phosphatase 56 Total Protein 7.8 Albumin 3.9 Urine Color Urine Appearance Urine pH Ur Specific [place] Urine Protein Urine Glucose (UA) Urine Ketones Urine Blood Urine Nitrite Urine Bilirubin Urine Urobilinogen Ur Leukocyte Esterase Urine WBC (Auto) Urine RBC (Auto) Urine Bacteria Urine Mucus RPR Titer Nonreactive 09/04/17 18:00 WBC RBC Hgb Hct MCV MCH MCHC RDW Plt Count MPV Sodium Potassium Chloride Carbon Dioxide Anion Gap BUN Creatinine Creat Clearance w eGFR Random Glucose Calcium Total Bilirubin AST ALT Alkaline Phosphatase Total Protein Albumin Urine Color Yellow Urine Appearance Turbid Urine pH 5.0 D Ur Specific [place] 1.030 Urine Protein Negative Urine Glucose (UA) Negative Urine Ketones Negative Urine Blood Negative Urine Nitrite Negative Urine Bilirubin Negative Urine Urobilinogen 2.0 Ur Leukocyte Esterase Trace Urine WBC (Auto) 60 Urine RBC (Auto) 3 Urine Bacteria Moderate Urine Mucus Few RPR Titer Assessment: 09/08/17 10:12 WITHDRAWAL SX Plan: CONTINUE DETOX MAY TRY MELATONIN TONIGHT.
[2017-09-08] MEDS: ACETAMINOPHEN 325 MG TABLET (FP) PO PRN (17:46)
[2017-09-08] MEDS: THIAMINE HCL 100 MG TABLET (FP) PO SCH (22:21)
[2017-09-09] MEDS ORDERED: METHADONE HCL 5 MG TABLET (FOR DETOX USE ONLY) PO SCH (06:00)
[2017-09-09 09:14] VITALS: BP 148/96; PULSE 79; TEMP 97.3
--- NOTE | 2017-09-09 09:40 | DS ---
[facility] Detox Discharge Summary Admission Date: 09/03/17 - Physical Exam Results Vital Signs: Vital Signs Temperature 97.9 F 09/08/17 21:11 Pulse Rate 70 09/08/17 21:11 Respiratory Rate 18 09/08/17 21:11 Blood Pressure 124/84 09/08/17 21:11 O2 Sat by Pulse Oximetry (%) - Medication Discharge Medications: Ambulatory Orders Albuterol Sulfate Inhaler - [Ventolin HFA Inhaler -] 2 puff IH Q4H PRN #0 inhaler 11/01/15 Amlodipine Besylate [Norvasc -] 10 mg PO DAILY 04/20/16 Pseudoephedrine HCl [Sudafed 12 Hour] 120 mg PO BID 07/09/16 - Diagnosis (1) Alcohol dependence with uncomplicated withdrawal Current Visit: Yes Status: Acute (2) Cocaine dependence, uncomplicated Current Visit: Yes Status: Acute (3) HTN (hypertension) Current Visit: Yes Status: Acute Qualifiers: Hypertension type: essential hypertension Qualified Code(s): I10 - Essential (primary) hypertension (4) Nicotine dependence Current Visit: Yes Status: Acute Qualifiers: Nicotine product type: cigarettes Substance use status: in withdrawal Qualified Code(s): F17.213 - Nicotine dependence, cigarettes, with withdrawal (5) Opioid dependence, uncomplicated Current Visit: Yes Status: Acute (6) Weight loss Current Visit: Yes Status: Acute (7) Asthma Current Visit: Yes Status: Chronic Qualifiers: Asthma severity: unspecified severity Asthma persistence: intermittent Asthma complication type: uncomplicated Qualified Code(s): J45.20 - Mild intermittent asthma, uncomplicated (8) Gynecomastia, male Current Visit: Yes Status: Chronic
--- NOTE | 2017-09-09 11:43 | PN ---
[facility] Progress Note (SOAP) Subjective: DETOX COMPLETED. ALERT OX 3. NAD. Objective: 09/09/17 11:43 Vital Signs 09/09/17 09:11 Temperature 97.3 F L Pulse Rate 79 Respiratory 18 Rate Blood Pressure 148/96 Laboratory Tests 09/04/17 09/04/17 09/04/17 07:55 07:55 07:55 WBC 6.5 D RBC 4.71 Hgb 15.1 Hct 44.7 MCV 95.0 MCH 32.2 MCHC 33.9 RDW 14.6 Plt Count 209 MPV 9.9 Sodium 141 Potassium 4.4 Chloride 104 Carbon Dioxide 30 Anion Gap 7 L BUN 12 Creatinine 1.1 Creat Clearance w eGFR > 60 Random Glucose 104 D Calcium 9.4 Total Bilirubin 0.3 AST 27 D ALT 45 D Alkaline Phosphatase 56 Total Protein 7.8 Albumin 3.9 Urine Color Urine Appearance Urine pH Ur Specific [place] Urine Protein Urine Glucose (UA) Urine Ketones Urine Blood Urine Nitrite Urine Bilirubin Urine Urobilinogen Ur Leukocyte Esterase Urine WBC (Auto) Urine RBC (Auto) Urine Bacteria Urine Mucus RPR Titer Nonreactive 09/04/17 18:00 WBC RBC Hgb Hct MCV MCH MCHC RDW Plt Count MPV Sodium Potassium Chloride Carbon Dioxide Anion Gap BUN Creatinine Creat Clearance w eGFR Random Glucose Calcium Total Bilirubin AST ALT Alkaline Phosphatase Total Protein Albumin Urine Color Yellow Urine Appearance Turbid Urine pH 5.0 D Ur Specific [place] 1.030 Urine Protein Negative Urine Glucose (UA) Negative Urine Ketones Negative Urine Blood Negative Urine Nitrite Negative Urine Bilirubin Negative Urine Urobilinogen 2.0 Ur Leukocyte Esterase Trace Urine WBC (Auto) 60 Urine RBC (Auto) 3 Urine Bacteria Moderate Urine Mucus Few RPR Titer Assessment: 09/09/17 11:43 MEDICALLY STABLE Plan: D/C PT TODAY
== END 2017-09-09 09:20 | disposition home or self-care (01) | DRG 773 ==
LOC: YASAS 17:42 → Y3N 19:08
PROVIDERS: ADMIT Surgery; ATTEND Surgery
PROC: HZ2ZZZZ Detoxification Services for Substance Abuse Treatment (ICD-10-PCS; principal; 2017-09-03)
DX: F11.23 Opioid dependence with withdrawal (principal); F10.230 Alcohol dependence with withdrawal, uncomplicated; F14.20 Cocaine dependence, uncomplicated; F17.213 Nicotine dependence, cigarettes, with withdrawal; I10 Essential (primary) hypertension; J45.20 Mild intermittent asthma, uncomplicated; N62 Hypertrophy of breast; Z87.898 Personal history of other specified conditions
CPT/HCPCS: 36415; 71046-TC-FY; 80053; 81003; 81015; 85027; 86593; 93005; 93010; J0735

== ENCOUNTER 2018-11-16 08:21 | Inpatient (IN) | payer OTHER ==
[2018-11-16 08:52] VITALS: BMI 23.7
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
[2018-11-16] MEDS ORDERED: hydrOXYzine PAMOATE 25 MG CAPSULE (FP) PO PRN (09:36)
[2018-11-16] MEDS ORDERED: MENTHOL/PHENOL 1 EACH UD MM PRN (09:36)
[2018-11-16] MEDS ORDERED: MAG HYDROX/AL HYDROX/SIMETH 30 ML UNIT-DOSE CUP PO PRN (09:36)
[2018-11-16] MEDS ORDERED: IBUPROFEN 400 MG TABLET (FP) PO PRN (09:36)
[2018-11-16] MEDS ORDERED: MAGNESIUM CITRATE 300 ML BOTTLE PO PRN (09:36)
[2018-11-16] MEDS ORDERED: MAGNESIUM HYDROX 2400MG/30ML ORAL SUSPENSION 30 ML CUP PO PRN (09:36)
[2018-11-16] MEDS ORDERED: METHADONE HCL 10 MG TABLET (FOR DETOX USE ONLY) PO ONE (09:36)
[2018-11-16] MEDS ORDERED: ACETAMINOPHEN 325 MG TABLET (FP) PO PRN (09:36)
[2018-11-16] MEDS ORDERED: chlordiazePOXIDE HCL 25 MG CAPSULE PO PRN (09:36)
[2018-11-16] MEDS ORDERED: BISMUTH SUBSALICYLATE 262 MG/15 ML BTL PO PRN (09:36)
[2018-11-16] MEDS ORDERED: cloNIDine HCL 0.1 MG TABLET PO PRN (09:36)
[2018-11-16] MEDS ORDERED: METHOCARBAMOL 500 MG TABLET PO PRN (09:36)
[2018-11-16] MEDS ORDERED: ALBUTEROL SO4 8 GM HFA INHALER IH PRN (09:40)
[2018-11-16] MEDS: PRENATAL VITAMINS W/ FOLIC ACID TABLET (FP) PO SCH (10:20)
[2018-11-16] MEDS: GABAPENTIN 300 MG CAPSULE (FP) PO SCH ×2 (10:20→22:22)
[2018-11-16] MEDS: amLODIPine BESYLATE 5 MG TABLET (FP) PO SCH (10:20)
[2018-11-16 14:31] LABS: HEMATOCRIT 42.6 % (35.4-49); HEMOGLOBIN 14.3 GM/dL (11.7-16.9); MCH 32.5 pg (25.7-33.7); MCHC 33.7 g/dl (32.0-35.9); MEAN CELL VOLUME 96.4 fl (80-96); MEAN PLT VOLUME 9.2 fl (7.5-11.1); PLATELET COUNT 242 K/MM3 (134-434); RBC 4.42 M/mm3 (4.00-5.60)
[2018-11-16 14:42] LABS: ALBUMIN 3.4 g/dl (3.4-5.0); BILIRUBIN,TOTAL 0.3 mg/dL (0.2-1); BLOOD UREA NITROGEN 9.8 mg/dL (7-18); CALCIUM 8.7 mg/dL (8.5-10.1); CREATININE 0.9 mg/dL (0.55-1.3); POTASSIUM 4.2 mmol/L (3.5-5.1); TOT PROT 6.8 g/dl (6.4-8.2)
[2018-11-16] MEDS: NICOTINE POLACRILEX 2 MG GUM BUC PRN (16:29)
[2018-11-16] MEDS: chlordiazePOXIDE HCL 25 MG CAPSULE PO SCH ×2 (17:24→22:23)
[2018-11-16] MEDS: THIAMINE HCL 100 MG TABLET (FP) PO SCH (22:22)
[2018-11-16] MEDS: AMMONIUM LACTATE 12% LOTION 225 GM BOTTLE TP SCH (22:22)
[2018-11-16] MEDS: MELATONIN 5 MG TABLETS PO PRN (22:23)
[2018-11-17] MEDS: chlordiazePOXIDE HCL 25 MG CAPSULE PO SCH ×4 (05:04→22:32)
[2018-11-17] MEDS ORDERED: METHADONE HCL 10 MG TABLET (FOR DETOX USE ONLY) ONE (09:17)
[2018-11-17] MEDS ORDERED: METHADONE HCL 5 MG TABLET (FOR DETOX USE ONLY) ONE (09:17)
[2018-11-17] MEDS ORDERED: METHADONE (DETOX) 20 MG, METHADONE (DETOX) 5 MG PO ONE (10:00)
[2018-11-17] MEDS: GABAPENTIN 300 MG CAPSULE (FP) PO SCH ×2 (10:31→22:32)
[2018-11-17] MEDS: amLODIPine BESYLATE 5 MG TABLET (FP) PO SCH (10:31)
[2018-11-17] MEDS: AMMONIUM LACTATE 12% LOTION 225 GM BOTTLE TP SCH ×2 (10:31→22:36)
[2018-11-17] MEDS: PRENATAL VITAMINS W/ FOLIC ACID TABLET (FP) PO SCH (10:32)
--- NOTE | 2018-11-17 12:18 | PN ---
[facility] Progress Note Note: rash noted to both top of feet lidex cream ordered
[2018-11-17] MEDS ORDERED: COLLOIDAL OATMEAL 1 BAR EACH TP PRN (13:03)
[2018-11-17 13:24] LABS: HYALINE CASTS 1 /lpf (0-8); PH,URINE 5.5 (5.0-8.0); URINE APPEARANCE CLEAR; URINE BILIRUBIN NEGATIVE (NEGATIVE); URINE COLOR YELLOW; URINE GLUCOSE (UA) NEGATIVE (NEGATIVE); URINE KETONE NEGATIVE (NEGATIVE); URINE LEUK ESTERASE 1+ (NEGATIVE); URINE NITRITE NEGATIVE (NEGATIVE); URINE PROTEIN NEGATIVE (NEGATIVE); URINE RBC 1 /hpf (0-4); URINE UROBILINOGEN 0.2 mg/dL (0.2-1.0); URINE WBC 3 /hpf (0-5)
[2018-11-17] MEDS: FLUOCINONIDE 0.05% CREAM (15 GM TUBE) TP SCH ×3 (15:42→22:51)
[2018-11-17] MEDS: TOLNAFTATE 1% CREAM 15 GM TUBE TP SCH ×2 (15:43→22:52)
[2018-11-17] MEDS: FLUTICASONE PROP 0.05% 16 GM NASAL SPRAY NS SCH ×2 (15:43→22:36)
--- NOTE | 2018-11-17 16:05 | PN ---
S CIWA - CIWA Score Nausea/Vomitin-No Nausea/No Vomiting Muscle Tremors: 2 Anxiety: 4-Mod. Anxious/Guarded Agitation: 2 Paroxysmal Sweats: No Perspiration Orientation: 0-Oriented Tacttile Disturbances: 2-Mild Itch/Numbness/Burn Auditory Disturbances: 2-Mild Harshness/Frighten Visual Disturbances: 2-Mild Sensitivity Headache: 0-None Present CIWA-Ar Total Score: 14 [facility] COWS - Scale Resting Pulse: 0= [place] 80 or Below Sweatin= No chills or Flushing Restless Observation: 1= Difficult to Sit Still Pupil Size: 0= Normal to Room Light Bone or Joint Aches: 2= Severe Diffuse Aches Runny Nose/ Eye Tearin= Nasal Congestion GI Upset > 30mins: 0= None Tremor Observation of Outstretched Hands: 2= Slight Tremor Visible Yawning Observation: 1= 1-2x During Session Anxiety or Irritability: 2=Irritable/Anxious Goose Flesh Skin: 3=[place]il[place] COWS Score: 12 S Progress Note (SOAP) Subjective: Nasal Congestion, Fatigue, Anxious, Tremors, Body Aches. Objective: PATIENT A & O X 3, OBSERVED AMBULATING ON UNIT UNASSISTED. IN NO ACUTE DISTRESS. 11/17/18 16:06 Vital Signs Temperature 98.1 F 11/17/18 13:38 Pulse Rate 68 11/17/18 13:38 Respiratory Rate 17 11/17/18 13:38 Blood Pressure 148/99 11/17/18 13:38 O2 Sat by Pulse Oximetry (%) Laboratory Tests 11/16/18 11/16/18 11/16/18 10:00 10:00 10:00 WBC 5.0 RBC 4.42 Hgb 14.3 Hct 42.6 MCV 96.4 H MCH 32.5 MCHC 33.7 RDW 14.0 Plt Count 242 MPV 9.2 Sodium 142 Potassium 4.2 Chloride 104 Carbon Dioxide 35 H Anion Gap 3 L BUN 9.8 Creatinine 0.9 Est GFR (CKD-EPI)AfAm 111.83 Est GFR (CKD-EPI)NonAf 96.49 Random Glucose 81 Calcium 8.7 Total Bilirubin 0.3 AST 16 ALT 26 Alkaline Phosphatase 43 L Total Protein 6.8 Albumin 3.4 Urine Color Urine Appearance Urine pH Ur Specific [place] Urine Protein Urine Glucose (UA) Urine Ketones Urine Blood Urine Nitrite Urine Bilirubin Urine Urobilinogen Ur Leukocyte Esterase Urine WBC (Auto) Urine RBC (Auto) Urine Casts (Auto) U Epithel Cells (Auto) Urine Bacteria (Auto) RPR Titer Nonreactive 11/17/18 09:00 WBC RBC Hgb Hct MCV MCH MCHC RDW Plt Count MPV Sodium Potassium Chloride Carbon Dioxide Anion Gap BUN Creatinine Est GFR (CKD-EPI)AfAm Est GFR (CKD-EPI)NonAf Random Glucose Calcium Total Bilirubin AST ALT Alkaline Phosphatase Total Protein Albumin Urine Color Yellow Urine Appearance Clear Urine pH 5.5 Ur Specific [place] 1.020 Urine Protein Negative Urine Glucose (UA) Negative Urine Ketones Negative Urine Blood Negative Urine Nitrite Negative Urine Bilirubin Negative Urine Urobilinogen 0.2 Ur Leukocyte Esterase 1+ H Urine WBC (Auto) 3 Urine RBC (Auto) 1 Urine Casts (Auto) 1 U Epithel Cells (Auto) 1.0 Urine Bacteria (Auto) 2.0 RPR Titer LABS NOTED. Assessment: 11/17/18 16:06 WITHDRAWAL SYMPTOMS. Plan: CONTINUE DETOX. INCREASE DAILY PO WATER INTAKE.
[2018-11-17] MEDS: THIAMINE HCL 100 MG TABLET (FP) PO SCH (22:32)
[2018-11-18] MEDS: chlordiazePOXIDE HCL 25 MG CAPSULE PO SCH ×4 (06:25→22:17)
[2018-11-18] MEDS ORDERED: METHADONE HCL 10 MG TABLET (FOR DETOX USE ONLY) PO ONE (10:00)
--- NOTE | 2018-11-18 10:18 | PN ---
[facility] CIWA - CIWA Score Nausea/Vomitin-Mild Nausea/No Vomiting Muscle Tremors: 1-None Visible, but [place] Anxiety: 2 Agitation: 1-Slight > Activity Paroxysmal Sweats: No Perspiration Orientation: 0-Oriented Tacttile Disturbances: 1-Very Mild Itch/Numbness Auditory Disturbances: 0-None Visual Disturbances: 0-None Headache: 1-Very Mild CIWA-Ar Total Score: 7 [facility] COWS - Scale Resting Pulse: 0= [place] 80 or Below Sweatin= No chills or Flushing Restless Observation: 0= Sits Still Pupil Size: 0= Normal to Room Light Bone or Joint Aches: 1= Mild Discomfort Runny Nose/ Eye Tearin= Nasal Congestion GI Upset > 30mins: 0= None Tremor Observation of Outstretched Hands: 1= Tremor [place], Not Seen Yawning Observation: 0= None [facility] Progress Note (SOAP) Subjective: Patient seen in bed without complaints. Very sleepy. Not requesting anything. Just wants to sleep. Objective: 11/18/18 10:12 BP:128/89 P:74 R:18 T:97.7 Laboratory 11/16/18 11/16/18 11/16/18 10:00 10:00 10:00 WBC 5.0 K/mm3 K/mm3 (4.0-10.0) RBC 4.42 M/mm3 M/mm3 (4.00-5.60) Hgb 14.3 GM/dL GM/dL (11.7-16.9) Hct 42.6 % % (35.4-49) MCV 96.4 fl H fl (80-96) MCH 32.5 pg pg (25.7-33.7) MCHC 33.7 g/dl g/dl (32.0-35.9) RDW 14.0 % % (11.9-15.9) Plt Count 242 K/MM3 K/MM3 (134-434) MPV 9.2 fl fl (7.5-11.1) Sodium 142 mmol/L mmol/L (136-145) Potassium 4.2 mmol/L mmol/L (3.5-5.1) Chloride 104 mmol/L mmol/L (98-107) Carbon Dioxide 35 mmol/L H mmol/L (21-32) Anion Gap 3 MMOL/L L MMOL/L (8-16) BUN 9.8 mg/dL mg/dL (7-18) Creatinine 0.9 mg/dL mg/dL (0.55-1.3) Est GFR (CKD-EPI)AfAm 111.83 Est GFR (CKD-EPI)NonAf 96.49 Random Glucose 81 mg/dL mg/dL (74-106) Calcium 8.7 mg/dL mg/dL (8.5-10.1) Total Bilirubin 0.3 mg/dL mg/dL (0.2-1) AST 16 U/L U/L (15-37) ALT 26 U/L U/L (13-61) Alkaline Phosphatase 43 U/L L U/L (45-117) Total Protein 6.8 g/dl g/dl (6.4-8.2) Albumin 3.4 g/dl g/dl (3.4-5.0) Urine Color Urine Appearance Urine pH Ur Specific [place] Urine Protein Urine Glucose (UA) Urine Ketones Urine Blood Urine Nitrite Urine Bilirubin Urine Urobilinogen Ur Leukocyte Esterase Urine WBC (Auto) Urine RBC (Auto) Urine Casts (Auto) U Epithel Cells (Auto) Urine Bacteria (Auto) RPR Titer Nonreactive (NONREACTIVE) 11/17/18 09:00 WBC RBC Hgb Hct MCV MCH MCHC RDW Plt Count MPV Sodium Potassium Chloride Carbon Dioxide Anion Gap BUN Creatinine Est GFR (CKD-EPI)AfAm Est GFR (CKD-EPI)NonAf Random Glucose Calcium Total Bilirubin AST ALT Alkaline Phosphatase Total Protein Albumin Urine Color Yellow Urine Appearance Clear Urine pH 5.5 (5.0-8.0) Ur Specific [place] 1.020 (1.010-1.035) Urine Protein Negative (NEGATIVE) Urine Glucose (UA) Negative (NEGATIVE) Urine Ketones Negative (NEGATIVE) Urine Blood Negative (NEGATIVE) Urine Nitrite Negative (NEGATIVE) Urine Bilirubin Negative (NEGATIVE) Urine Urobilinogen 0.2 mg/dL mg/dL (0.2-1.0) Ur Leukocyte Esterase 1+ H (NEGATIVE) Urine WBC (Auto) 3 /hpf /hpf (0-5) Urine RBC (Auto) 1 /hpf /hpf (0-4) Urine Casts (Auto) 1 /lpf /lpf (0-8) U Epithel Cells (Auto) 1.0 /HPF /HPF (0-5/HPF) Urine Bacteria (Auto) 2.0 /hpf /hpf (NEGATIVE) RPR Titer Assessment: 11/18/18 10:14 1. Opioid and Alcohol Dependence 2. Abnormal labs Plan: 1. Continue detox protocols. Encourage PO fluids 2. Abnormal labs noted consistent with dehydration and substances used.
[2018-11-18] MEDS: PRENATAL VITAMINS W/ FOLIC ACID TABLET (FP) PO SCH (10:36)
[2018-11-18] MEDS: amLODIPine BESYLATE 5 MG TABLET (FP) PO SCH (10:36)
[2018-11-18] MEDS: GABAPENTIN 300 MG CAPSULE (FP) PO SCH ×2 (10:37→22:17)
[2018-11-18] MEDS: TOLNAFTATE 1% CREAM 15 GM TUBE TP SCH ×2 (10:37→22:20)
[2018-11-18] MEDS: FLUOCINONIDE 0.05% CREAM (15 GM TUBE) TP SCH ×4 (10:37→22:22)
[2018-11-18] MEDS: AMMONIUM LACTATE 12% LOTION 225 GM BOTTLE TP SCH ×2 (10:38→22:23)
[2018-11-18] MEDS: FLUTICASONE PROP 0.05% 16 GM NASAL SPRAY NS SCH ×2 (10:38→22:18)
[2018-11-18] MEDS: ACETAMINOPHEN 325 MG TABLET (FP) PO PRN (12:58)
[2018-11-18] MEDS: THIAMINE HCL 100 MG TABLET (FP) PO SCH (22:17)
[2018-11-18] MEDS: NICOTINE POLACRILEX 2 MG GUM BUC PRN (23:02)
[2018-11-19] MEDS ORDERED: chlordiazePOXIDE HCL 10 MG CAPSULE PO PRN
[2018-11-19] MEDS: ACETAMINOPHEN 325 MG TABLET (FP) PO PRN (02:51)
[2018-11-19] MEDS: chlordiazePOXIDE HCL 10 MG CAPSULE PO SCH ×4 (06:07→22:38)
[2018-11-19] MEDS ORDERED: METHADONE HCL 10 MG TABLET (FOR DETOX USE ONLY) ONE (09:56)
[2018-11-19] MEDS ORDERED: METHADONE HCL 5 MG TABLET (FOR DETOX USE ONLY) ONE (09:56)
[2018-11-19] MEDS ORDERED: METHADONE (DETOX) 10 MG, METHADONE (DETOX) 5 MG PO ONE (10:00)
[2018-11-19] MEDS: TOLNAFTATE 1% CREAM 15 GM TUBE TP SCH ×2 (10:30→22:39)
[2018-11-19] MEDS: GABAPENTIN 300 MG CAPSULE (FP) PO SCH ×2 (10:44→22:38)
[2018-11-19] MEDS: PRENATAL VITAMINS W/ FOLIC ACID TABLET (FP) PO SCH (10:44)
[2018-11-19] MEDS: amLODIPine BESYLATE 5 MG TABLET (FP) PO SCH (10:44)
[2018-11-19] MEDS: AMMONIUM LACTATE 12% LOTION 225 GM BOTTLE TP SCH ×2 (10:46→22:39)
[2018-11-19] MEDS: FLUTICASONE PROP 0.05% 16 GM NASAL SPRAY NS SCH ×2 (10:47→22:36)
[2018-11-19] MEDS: FLUOCINONIDE 0.05% CREAM (15 GM TUBE) TP SCH ×4 (10:48→22:39)
--- NOTE | 2018-11-19 10:50 | PN ---
[facility] CIWA - CIWA Score Nausea/Vomitin-No Nausea/No Vomiting Muscle Tremors: None Anxiety: 3 Agitation: 0-Normal Activity Paroxysmal Sweats: 3 Orientation: 0-Oriented Tacttile Disturbances: 0-None Auditory Disturbances: 0-None Visual Disturbances: 0-None Headache: 0-None Present CIWA-Ar Total Score: 6 S COWS - Scale Resting Pulse: 0= [place] 80 or Below Sweatin= Beads of Sweat on Face Restless Observation: 1= Difficult to Sit Still Pupil Size: 0= Normal to Room Light Bone or Joint Aches: 0= None Runny Nose/ Eye Tearin= None GI Upset > 30mins: 0= None Tremor Observation of Outstretched Hands: 0= None Yawning Observation: 1= 1-2x During Session Anxiety or Irritability: 2=Irritable/Anxious Goose Flesh Skin: 0=Smooth Skin COWS Score: 7 [facility] Progress Note (SOAP) Subjective: c/o sweats, anxiety, and irritability. Objective: 11/19/18 10:49 Vital Signs 11/19/18 11/19/18 06:00 09:51 Temperature 97.7 F 97.7 F Pulse Rate 73 68 Respiratory 18 16 Rate Blood Pressure 131/91 125/98 Lab Results WBC 5.0 K/mm3 (4.0-10.0) 11/16/18 10:00 RBC 4.42 M/mm3 (4.00-5.60) 11/16/18 10:00 Hgb 14.3 GM/dL (11.7-16.9) 11/16/18 10:00 Hct 42.6 % (35.4-49) 11/16/18 10:00 MCV 96.4 fl (80-96) H 11/16/18 10:00 MCHC 33.7 g/dl (32.0-35.9) 11/16/18 10:00 RDW 14.0 % (11.9-15.9) 11/16/18 10:00 Plt Count 242 K/MM3 (134-434) 11/16/18 10:00 Sodium 142 mmol/L (136-145) 11/16/18 10:00 Potassium 4.2 mmol/L (3.5-5.1) 11/16/18 10:00 Chloride 104 mmol/L (98-107) 11/16/18 10:00 Carbon Dioxide 35 mmol/L (21-32) H 11/16/18 10:00 Anion Gap 3 MMOL/L (8-16) L 11/16/18 10:00 BUN 9.8 mg/dL (7-18) 11/16/18 10:00 Creatinine 0.9 mg/dL (0.55-1.3) 11/16/18 10:00 Random Glucose 81 mg/dL (74-106) 11/16/18 10:00 Calcium 8.7 mg/dL (8.5-10.1) 11/16/18 10:00 Labs noted. Assessment: 11/19/18 10:50 AOX3, in no acute respiratory distress. Full ROM, ambulating in the unit. Withdrawal symptoms. Plan: continue detox.
[2018-11-19] MEDS: NICOTINE POLACRILEX 2 MG GUM BUC PRN (20:28)
[2018-11-19] MEDS: THIAMINE HCL 100 MG TABLET (FP) PO SCH (22:38)
[2018-11-20] MEDS: chlordiazePOXIDE HCL 10 MG CAPSULE PO SCH ×2 (05:12→17:11)
[2018-11-20] MEDS ORDERED: METHADONE HCL 10 MG TABLET (FOR DETOX USE ONLY) PO ONE (10:00)
[2018-11-20] MEDS: amLODIPine BESYLATE 5 MG TABLET (FP) PO SCH (10:49)
[2018-11-20] MEDS: PRENATAL VITAMINS W/ FOLIC ACID TABLET (FP) PO SCH (10:49)
[2018-11-20] MEDS: GABAPENTIN 300 MG CAPSULE (FP) PO SCH ×2 (10:49→22:34)
[2018-11-20] MEDS: TOLNAFTATE 1% CREAM 15 GM TUBE TP SCH ×2 (10:51→22:36)
[2018-11-20] MEDS: AMMONIUM LACTATE 12% LOTION 225 GM BOTTLE TP SCH ×2 (10:53→22:35)
[2018-11-20] MEDS: FLUOCINONIDE 0.05% CREAM (15 GM TUBE) TP SCH ×4 (10:53→23:23)
[2018-11-20] MEDS: FLUTICASONE PROP 0.05% 16 GM NASAL SPRAY NS SCH ×2 (10:53→22:34)
--- NOTE | 2018-11-20 13:58 | PN ---
S CIWA - CIWA Score Nausea/Vomitin-No Nausea/No Vomiting Muscle Tremors: None Anxiety: 2 Agitation: 2 Paroxysmal Sweats: No Perspiration Orientation: 0-Oriented Tacttile Disturbances: 0-None Auditory Disturbances: 0-None Visual Disturbances: 0-None Headache: 0-None Present CIWA-Ar Total Score: 4 S COWS - Scale Resting Pulse: 0= [place] 80 or Below Sweatin= No chills or Flushing Restless Observation: 0= Sits Still Pupil Size: 0= Normal to Room Light Bone or Joint Aches: 1= Mild Discomfort Runny Nose/ Eye Tearin= None GI Upset > 30mins: 0= None Tremor Observation of Outstretched Hands: 0= None Yawning Observation: 0= None Anxiety or Irritability: 2=Irritable/Anxious Goose Flesh Skin: 0=Smooth Skin COWS Score: 3 [facility] Progress Note (SOAP) Subjective: Interrupted sleep, anxious. Patient c/o swelling to B/L LE and feet x 3 days stating he had no swelling when he was admitted. Patient denies long standing, sob or chest pain stating he has asthma but has not used the pump. As per staff , patient has been standing at nursing station for long periods of time. Objective: 11/20/18 13:54 Last Vital Signs Temp Pulse Resp BP Pulse Ox 97.9 F 66 18 132/96 11/20/18 09:26 11/20/18 09:26 11/20/18 09:26 11/20/18 09:26 Elevated b/p (has htn, on norvasc) PE: lungs ctab/l, no added breath sounds CV: rrr, s1s2+, no m/g/r Extrem: ppp, non pitting edema noted to B/L LE and top of feet, peeling rash noted on feet (on lidex) Skin: warm to touch (no increased warmth noted), turgor good Laboratory Tests 11/16/18 11/16/18 11/16/18 10:00 10:00 10:00 WBC 5.0 RBC 4.42 Hgb 14.3 Hct 42.6 MCV 96.4 H MCH 32.5 MCHC 33.7 RDW 14.0 Plt Count 242 MPV 9.2 Sodium 142 Potassium 4.2 Chloride 104 Carbon Dioxide 35 H Anion Gap 3 L BUN 9.8 Creatinine 0.9 Est GFR (CKD-EPI)AfAm 111.83 Est GFR (CKD-EPI)NonAf 96.49 Random Glucose 81 Calcium 8.7 Total Bilirubin 0.3 AST 16 ALT 26 Alkaline Phosphatase 43 L Total Protein 6.8 Albumin 3.4 Urine Color Urine Appearance Urine pH Ur Specific [place] Urine Protein Urine Glucose (UA) Urine Ketones Urine Blood Urine Nitrite Urine Bilirubin Urine Urobilinogen Ur Leukocyte Esterase Urine WBC (Auto) Urine RBC (Auto) Urine Casts (Auto) U Epithel Cells (Auto) Urine Bacteria (Auto) RPR Titer Nonreactive 11/17/18 09:00 WBC RBC Hgb Hct MCV MCH MCHC RDW Plt Count MPV Sodium Potassium Chloride Carbon Dioxide Anion Gap BUN Creatinine Est GFR (CKD-EPI)AfAm Est GFR (CKD-EPI)NonAf Random Glucose Calcium Total Bilirubin AST ALT Alkaline Phosphatase Total Protein Albumin Urine Color Yellow Urine Appearance Clear Urine pH 5.5 Ur Specific [place] 1.020 Urine Protein Negative Urine Glucose (UA) Negative Urine Ketones Negative Urine Blood Negative Urine Nitrite Negative Urine Bilirubin Negative Urine Urobilinogen 0.2 Ur Leukocyte Esterase 1+ H Urine WBC (Auto) 3 Urine RBC (Auto) 1 Urine Casts (Auto) 1 U Epithel Cells (Auto) 1.0 Urine Bacteria (Auto) 2.0 RPR Titer Labs reviewed Assessment: 11/20/18 13:55 Withdrawal sxs Noted with B/L LE edema Plan: Continue detox Encouraged PO water intake Patient is scheduled for discharge home tomorrow HTN: continue norvasc, educated on low Na diet B/L LE Edema: instructed to elevate legs while in bed, avoid long standing Follow up with PCP post discharge for further evaluation
[2018-11-20] MEDS: THIAMINE HCL 100 MG TABLET (FP) PO SCH (22:33)
[2018-11-20] MEDS: MELATONIN 5 MG TABLETS PO PRN (22:35)
[2018-11-21] MEDS ORDERED: chlordiazePOXIDE HCL 10 MG CAPSULE PO ONE (05:00)
[2018-11-21] MEDS ORDERED: METHADONE HCL 5 MG TABLET (FOR DETOX USE ONLY) PO ONE (06:00)
[2018-11-21 06:26] VITALS: BP 127/75; PULSE 60; TEMP 98.2
[2018-11-21] MEDS: FLUTICASONE PROP 0.05% 16 GM NASAL SPRAY NS SCH (09:04)
[2018-11-21] MEDS: PRENATAL VITAMINS W/ FOLIC ACID TABLET (FP) PO SCH (09:04)
[2018-11-21] MEDS: GABAPENTIN 300 MG CAPSULE (FP) PO SCH (09:04)
[2018-11-21] MEDS: AMMONIUM LACTATE 12% LOTION 225 GM BOTTLE TP SCH (09:04)
[2018-11-21] MEDS: FLUOCINONIDE 0.05% CREAM (15 GM TUBE) TP SCH (09:04)
[2018-11-21] MEDS: amLODIPine BESYLATE 5 MG TABLET (FP) PO SCH (09:05)
[2018-11-21] MEDS: TOLNAFTATE 1% CREAM 15 GM TUBE TP SCH (09:05)
--- NOTE | 2018-11-21 09:17 | DS ---
[facility] Detox Discharge Summary Admission Date: 11/16/18 Discharge Date: 11/21/18 - History Present History: Alcohol Dependence, Cocaine Dependence, Opioid Dependence - Physical Exam Results Vital Signs: Vital Signs Temperature 98.2 F 11/21/18 06:00 Pulse Rate 60 11/21/18 06:00 Respiratory Rate 18 11/21/18 06:00 Blood Pressure 127/75 11/21/18 06:00 O2 Sat by Pulse Oximetry (%) Pertinent Admission Physical Exam Findings: pt arrived in withdrawals Laboratory Tests 11/16/18 11/16/18 11/16/18 10:00 10:00 10:00 WBC 5.0 RBC 4.42 Hgb 14.3 Hct 42.6 MCV 96.4 H MCH 32.5 MCHC 33.7 RDW 14.0 Plt Count 242 MPV 9.2 Sodium 142 Potassium 4.2 Chloride 104 Carbon Dioxide 35 H Anion Gap 3 L BUN 9.8 Creatinine 0.9 Est GFR (CKD-EPI)AfAm 111.83 Est GFR (CKD-EPI)NonAf 96.49 Random Glucose 81 Calcium 8.7 Total Bilirubin 0.3 AST 16 ALT 26 Alkaline Phosphatase 43 L Total Protein 6.8 Albumin 3.4 Urine Color Urine Appearance Urine pH Ur Specific [place] Urine Protein Urine Glucose (UA) Urine Ketones Urine Blood Urine Nitrite Urine Bilirubin Urine Urobilinogen Ur Leukocyte Esterase Urine WBC (Auto) Urine RBC (Auto) Urine Casts (Auto) U Epithel Cells (Auto) Urine Bacteria (Auto) RPR Titer Nonreactive 11/17/18 09:00 WBC RBC Hgb Hct MCV MCH MCHC RDW Plt Count MPV Sodium Potassium Chloride Carbon Dioxide Anion Gap BUN Creatinine Est GFR (CKD-EPI)AfAm Est GFR (CKD-EPI)NonAf Random Glucose Calcium Total Bilirubin AST ALT Alkaline Phosphatase Total Protein Albumin Urine Color Yellow Urine Appearance Clear Urine pH 5.5 Ur Specific [place] 1.020 Urine Protein Negative Urine Glucose (UA) Negative Urine Ketones Negative Urine Blood Negative Urine Nitrite Negative Urine Bilirubin Negative Urine Urobilinogen 0.2 Ur Leukocyte Esterase 1+ H Urine WBC (Auto) 3 Urine RBC (Auto) 1 Urine Casts (Auto) 1 U Epithel Cells (Auto) 1.0 Urine Bacteria (Auto) 2.0 RPR Titer today pt is aaox3 ambulating no acute distress no s/s of withdrawal sx - Treatment Hospital Course: Detox Protocol Followed, Detoxed Safely, Responded well, Discharged Condition Good, Rehab Referral Accepted Patient has Accepted a Rehab Referral to: [facility] outpatient - Medication Discharge Medications: Ambulatory Orders Pseudoephedrine HCl [Sudafed 12 Hour] 120 mg PO BID 07/09/16 Albuterol Sulfate Inhaler - [Ventolin HFA Inhaler -] 2 puff IH Q4H PRN #1 inhaler 09/09/17 Amlodipine Besylate [Norvasc -] 10 mg PO DAILY #30 tablet 09/09/17 Gabapentin 300 mg PO BID 11/16/18 - Diagnosis (1) Opioid dependence with withdrawal Current Visit: Yes Status: Chronic (2) Alcohol dependence with uncomplicated withdrawal Current Visit: Yes Status: Chronic (3) Cocaine dependence with withdrawal Current Visit: Yes Status: Chronic (4) Drug-induced mood disorder Current Visit: No Status: Acute (5) Methadone maintenance therapy patient Current Visit: Yes Status: Acute (6) Nicotine dependence Current Visit: Yes Status: Acute Qualifiers: Nicotine product type: cigarettes Substance use status: uncomplicated Qualified Code(s): F17.210 - Nicotine dependence, cigarettes, uncomplicated (7) Positive PPD Current Visit: No Status: Acute (8) Syncope Current Visit: No Status: Acute (9) Weight loss Current Visit: No Status: Acute (10) Asthma Current Visit: Yes Status: Chronic Qualifiers: Asthma severity: unspecified severity Asthma persistence: intermittent Asthma complication type: uncomplicated Qualified Code(s): J45.20 - Mild intermittent asthma, uncomplicated (11) Gynecomastia, male Current Visit: No Status: Chronic (12) HTN (hypertension) Current Visit: Yes Status: Chronic Qualifiers: Hypertension type: essential hypertension Qualified Code(s): I10 - Essential (primary) hypertension - AMA Did Patient Leave Against Medical Advice: No
== END 2018-11-21 09:30 | disposition home or self-care (01) | DRG 773 ==
LOC: YASAS 08:21 → Y6N 09:40
PROVIDERS: ADMIT Surgery; ATTEND Surgery
PROC: HZ2ZZZZ Detoxification Services for Substance Abuse Treatment (ICD-10-PCS; principal; 2018-11-16)
DX: F11.23 Opioid dependence with withdrawal (principal); F10.230 Alcohol dependence with withdrawal, uncomplicated; F14.23 Cocaine dependence with withdrawal; F17.210 Nicotine dependence, cigarettes, uncomplicated; F19.24 Other psychoactive substance dependence with psychoactive substance-induced mood disorder; I10 Essential (primary) hypertension; J45.20 Mild intermittent asthma, uncomplicated; N62 Hypertrophy of breast; R30.0 Dysuria; R21 Rash and other nonspecific skin eruption; R09.81 Nasal congestion
CPT/HCPCS: 36415; 71046-TC-FY; 80053; 81003; 85027; 86593